=== PATIENT | female | born 1985 | race Caucasian/White ===

== ENCOUNTER → 2016-11-18 | Outpatient (CLI) | payer OTHER ==
--- NOTE | 2016-11-18 12:28 | CT ---
EXAMINATION TYPE: CT chest wo con DATE OF EXAM: 11/18/2016 12:20 PM COMPARISON: Previous study dated 07/30/2016 TECHNIQUE: Helical acquisition through the chest and upper abdomen was obtained without intravenous c ontrast. The data was reformatted into axial, coronal and sagittal projections. HISTORY: Cough. SOB CT DLP: 714 mGycm Automated exposure control for dose reduction was used. FINDINGS: There has been a lower cervical fusion. The lungs are clear. There is no significant axillary, internal mammary, mediastinal or hilar adenopathy. There is no pleu ral or pericardial fluid. The heart is not enlarged. Visualized portions of the upper abdomen are unremarkable. No osseous lesion is seen. IMPRESSION: NORMAL CT SCAN OF
== END | disposition home or self-care (01) ==
LOC: RADCTMAIN 12:04
PROVIDERS: ATTEND Internal Medicine Pulmonary Disease
DX: R06.02 Shortness of breath (principal); R05 Cough
CPT/HCPCS: 71250

== ENCOUNTER → 2017-10-28 | Outpatient (CLI) | payer MEDICARE, OTHER ==
--- NOTE | 2017-10-28 11:54 | CT ---
EXAMINATION TYPE: CT chest wo con DATE OF EXAM: 10/28/2017 COMPARISON: 11/18/2016 HISTORY: 32-year-old female Shortness of Breath TECHNIQUE: Contiguous axial scanning of the chest without IV contrast. Coronal and sagittal reconstru ctions performed. CT DLP: 609.6 mGycm Automated exposure control for dose reduction was used. FINDINGS: Heart is normal size without pericardial effusion. Aorta normal caliber with conventional arch vessel branching anatomy. No thoracic lymphadenopathy seen. Evaluation of the lungs demonstrates very minimal scattered bronchial wall thickening. No consolidati on or pleural effusion. Minimal stranding inferior lingular atelectasis. A tiny 2 mm peripheral right lower lobe pulmonary nodule axial image 32 is unchanged from 11/18/2016 s uggesting a benign etiology. A 3 mm subpleural pulmonary nodule peripheral left base axial image 46 is similarly unchanged. Tiny hiatal hernia. Tiny inferior splenule. Bones: No osseous destructive process. Partially visualized intervertebral disc prosthesis lower cerv ical spine. IMPRESSION: 1. VERY MINIMAL SCATTERED BRONCHIAL WALL THICKENING COULD REPRESENT BRONCHITIS OR ASTHMA. 2. OTHERWISE, NO SPECIFIC ABNORMALITY SEEN. 3. TINY HIATAL HERNIA.
[2017-10-30 13:55] LABS: Cotinine <2.0 ng/mL (<2.0); Nicotine <2.0 ng/mL (<2.0)
== END | disposition home or self-care (01) ==
LOC: RADCTMAIN 11:08
PROVIDERS: ATTEND Internal Medicine Pulmonary Disease
DX: J98.09 Other diseases of bronchus, not elsewhere classified (principal); R06.02 Shortness of breath; R05 Cough; K44.9 Diaphragmatic hernia without obstruction or gangrene; Z72.0 Tobacco use
CPT/HCPCS: 71250; G0480; 80323

== ENCOUNTER → 2017-11-08 | Outpatient (CLI) | payer OTHER ==
--- NOTE | 2017-11-09 10:16 | ECHOF ---
Referral Reason:R06.02 shortness of Breath MEASUREMENTS -------- HEIGHT: 170.2 cm WEIGHT: 102.1 kg BP: 141/84 RVIDd: 2.8 cm (< 3.3) IVSd: 1.2 cm (0.6 - 1.1) LVIDd: 4.4 cm (3.9 - 5.3) LVPWd: 1.2 cm (0.6 - 1.1) IVSs: 1.6 cm LVIDs: 2.3 cm LVPWs: 1.6 cm LAESV Index (A-L): 11.62 ml/m Ao Diam: 2.7 cm (2.0 - 3.7) AV Cusp: 1.7 cm (1.5 - 2.6) LA Diam: 3.4 cm (2.7 - 3.8) MV EXCURSION: 14.317 mm (> 18.000) MV EF SLOPE: 97 mm/s (70 - 150) EPSS: 0.6 cm MV E Roscoe: 0.75 m/s MV DecT: 249 ms MV A [place]coe: 1.05 m/s MV E/A Ratio: 0.72 AV maxP.59 mmHg AV meanP.81 mmHg RAP: 5.00 mmHg RVSP: 13.89 mmHg FINDINGS -------- Sinus rhythm. This was a technically adequate study. The left ventricular size is normal. There is mild concentric left ventricular hypertrophy. Overa ll left ventricular systolic function is normal with, an EF between 55 - 60 %. The right ventricle is normal in size and function. Normal LA size by volume 22+/-6 ml/m2. The right atrium is normal in size. The aortic valve is trileaflet, and appears structurally normal. No aortic stenosis or regurgitation. The mitral valve is normal. There is trace mitral regurgitation. Trace tricuspid regurgitation present. Right ventricular systolic pressure is normal at < 35 mmHg. There is no evidence of pulmonary hypertension. Trace/mild (physiologic) pulmonic regurgitation. The aortic root size is normal. Normal inferior vena cava with normal inspiratory collapse consistent with estimated right atrial pre ssure of 5 mmHg. There is no pericardial effusion. CONCLUSIONS -------- 1. Sinus rhythm. 2. This was a technically adequate study. 3. The left ventricular size is normal. 4. There is mild concentric left ventricular hypertrophy. 5. Overall left ventricular systolic function is normal with, an EF between 55 - 60 %. 6. Normal LA size by volume 22+/-6 ml/m2. 7. The aortic valve is trileaflet, and appears structurally normal. No aortic stenosis or regurgitati on. 8. There is trace mitral regurgitation. 9. Trace tricuspid regurgitation present. 10. Right ventricular systolic pressure is normal at < 35 mmHg. 11. Trace/mild (physiologic) pulmonic regurgitation. 12. The aortic root size is normal. 13. There is no pericardial effusion. GRINDING WHEEL OPERATOR: Shirley Nevarez RDCS
== END | disposition home or self-care (01) ==
LOC: RADECHMAIN 15:40
PROVIDERS: ATTEND Internal Medicine Pulmonary Disease
DX: I08.1 Rheumatic disorders of both mitral and tricuspid valves (principal)
CPT/HCPCS: 93306

== ENCOUNTER → 2018-03-01 | Outpatient (CLI) | payer MEDICARE, OTHER ==
--- NOTE | 2018-03-01 08:23 | US ---
EXAMINATION TYPE: US abdomen complete DATE OF EXAM: 03/01/2018 COMPARISON: CT Chest dated October 28, 2017 CLINICAL HISTORY: K42.9 Umbilical hernia w/o obstruction. Pt states pain at umbilicus EXAM MEASUREMENTS: Liver Length: 20.7 cm Gallbladder Wall: 0.2 cm CBD: 0.3 cm Spleen: 10.9 cm Right Kidney: 11.6 X 4.2 X 5.2 cm Left Kidney: 12.0 X 4.2 X 5.5 cm Pancreas: wnl, tail obscured by overlying bowel gas Liver: Enlarged, difficult to penetrate, heterogeneous Gallbladder: wnl Evidence for sonographic Wadsworth's sign: No CBD: wnl Spleen: wnl Right Kidney: wnl Left Kidney: wnl Upper IVC: wnl Abd Aorta: wnl At umbilicus, area of pt's pain: unable to appreciate abnormality The intrahepatic portion of the IVC and proximal abdominal aorta are within normal limits. There is no evidence of cholelithiasis. Common bile duct is unremarkable. The visualized portions of the [place] creas are homogenous. The spleen is unremarkable. Questionable cortical defect in the midpole the le ft kidney. IMPRESSION: Correlate for hepatocellular disease, hepatic steatosis, there is hepatomegaly. An umbili ev hernia that contains fat was present on prior CT.
== END | disposition home or self-care (01) ==
LOC: RADUSWWP 07:30
PROVIDERS: ATTEND Family Medicine
DX: K42.9 Umbilical hernia without obstruction or gangrene (principal); R16.0 Hepatomegaly, not elsewhere classified
CPT/HCPCS: 76700

== ENCOUNTER 2018-03-24 13:35 | Day surgery (SDC) | payer MEDICARE, OTHER ==
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
[2018-03-24 14:07] VITALS: TEMP 97.7
[2018-03-24] MEDS ORDERED: LACTATED RINGERS 1,000 ML IV SCH (16:19)
[2018-03-24] MEDS ORDERED: PROPOFOL 10 MG/ML 20 ML VIAL IV ONE (16:20)
[2018-03-24 16:42] VITALS: PULSE 69; RESP 18
[2018-03-24 16:59] VITALS: BP 120/86
--- NOTE | 2018-03-24 18:46 | P.PCN ---
Date of Procedure: 03/24/18 Description of Procedure: PREOPERATIVE DIAGNOSIS: Gastroesophageal reflux disease. POSTOPERATIVE DIAGNOSIS: Gastritis. Gastroesophageal reflux disease. Diaphragmatic hiatal hernia without obstruction. OPERATION: Esophagogastroduodenoscopy with biopsies along antrum. SURGEON: Sanjuana Moraes MD ANESTHESIA: MAC. INDICATIONS: The patient is a 32-year-old female who presents with a history of reflux disease. Benefits and risks of the procedure were described. Informed consent was obtained. DESCRIPTION: The patient was brought into the endoscopy suite and laid in the left lateral decubitus position. An Olympus gastroscope was passed along the posterior oropharynx down to the distal esophagus where the squamocolumnar junction was encountered at 37 cm from the incisors. The stomach was entered and no bile reflux was found. Additional findings are listed below. Biopsies with cold forceps were obtained of the antrum. The first through third portion of the duodenum was examined and unremarkable. Retroflexion of the scope confirmed Hill grade 4 lower esophageal valve. The squamocolumnar junction demostrated LA grade A erosive esophagitis. The stomach was desufflated. The patient tolerated the procedure well. FINDINGS: Squamocolumnar junction 37 cm from the incisors. Diaphragmatic hiatus at 40 cm. Hiatal hernia 3 cm. Hill grade 4 lower esophageal valve. LA grade A erosive esophagitis. No active duodenitis. Early gastritis without bleeding along the antrum RECOMMENDATIONS: Upper endoscopy as needed. Plan - Discharge Summary New Discharge Prescriptions: No Action Albuterol Nebulized [Ventolin Nebulized] 2.5 mg INHALATION RT-Q6H PRN PRN Reason: Shortness Of Breath Colchicine 0.6 mg PO BID Albuterol Inhaler [Ventolin Hfa Inhaler] 2 puff INHALATION RT-Q4H PRN PRN Reason: Shortness Of Breath Diazepam [Valium] 10 mg PO TID PRN PRN Reason: Anxiety Ibuprofen [Motrin] 800 mg PO TID Hydroxychloroquine Sulfate [Plaquenil] 400 mg PO ONCE Discharge Medication List Albuterol Inhaler [Ventolin Hfa Inhaler] 2 puff INHALATION RT-Q4H PRN 07/30/16 [ History] Albuterol Nebulized [Ventolin Nebulized] 2.5 mg INHALATION RT-Q6H PRN 07/30/16 [ History] Colchicine 0.6 mg PO BID 07/30/16 [History] Diazepam [Valium] 10 mg PO TID PRN 07/30/16 [History] Hydroxychloroquine Sulfate [Plaquenil] 400 mg PO ONCE 03/24/18 [History] Ibuprofen [Motrin] 800 mg PO TID 03/24/18 [History] Patient Instructions/Handouts: *Surgery [facility] - (Anesthesia) Endoscopy Discharge Instructions, Hiatal Hernia (DC), Gastritis (DC), Gastroesophageal Reflux Disease (DC), Upper Endoscopy (DC) Activity/Diet/Wound Care/Special Instructions: REST TODAY, NO DRIVING, DRINK LOTS OF FLUIDS DR TO CALL YOU WHEN DONE LATER TODAY OR TOMORROW DR'S OFFICE TO CALL WITH RESULTS IN 5-7 DAYS Discharge Disposition: HOME SELF-CARE
== END 2018-03-24 17:22 | disposition home or self-care (01) ==
LOC: ORWHC2ENDO 13:35
PROVIDERS: ATTEND Surgery Plastic and Reconstructive Surgery
DX: K21.0 Gastro-esophageal reflux disease with esophagitis (principal); K29.50 Unspecified chronic gastritis without bleeding; K44.9 Diaphragmatic hernia without obstruction or gangrene; J45.909 Unspecified asthma, uncomplicated; F39 Unspecified mood [affective] disorder; Z91.040 Latex allergy status; Z88.8 Allergy status to other drugs, medicaments and biological substances; Z79.51 Long term (current) use of inhaled steroids; Z79.899 Other long term (current) drug therapy
CPT/HCPCS: 43239; 81025; 88305; J2704

== ENCOUNTER 2018-05-05 10:15 | Inpatient (IN) | payer MEDICARE ==
--- NOTE | 2018-05-05 08:37 | P.GSHP ---
History of Present Illness H&P Date: 05/05/18 CHIEF COMPLAINT: Ventral hernia. HISTORY OF PRESENT ILLNESS: The patient is a 32-year-old female who presents with a history of swelling along the epigastrium above the umbilicus. Findings were consistent with ventral hernia after diagnostic studies. Now she presents for further evaluation and management. PAST MEDICAL HISTORY: Please see list. PAST SURGICAL HISTORY: Please see list. MEDICATIONS: Please see list. ALLERGIES: Please see list. SOCIAL HISTORY: No illicit drug use FAMILY HISTORY: No reports of Crohn disease or ulcerative colitis. REVIEW OF ORGAN SYSTEMS: CONSTITUTIONAL: No reports of fevers or chills. GI: Denies any blood in stools or constipation. PHYSICAL EXAM: VITAL SIGNS: Stable GENERAL: Well-developed pleasant female in no acute distress. HEENT: No scleral icterus. Extraocular movements grossly intact. Moist buccal mucosa. NECK: Supple without lymphadenopathy. CHEST: Unlabored respirations. Equal bilateral excursions. CARDIOVASCULAR: Regular rate and rhythm. Distal 2+ pulses. ABDOMEN: Soft, nondistended. Protuberant. MUSCULOSKELETAL: No clubbing, cyanosis, or edema. STUDIES: Ultrasound of the abdomen consistent with incarcerated ventral hernia/umbilical hernia ASSESSMENT: 1. Ventral hernia. 2. Morbid obesity, BMI 35.6 PLAN: 1. Recommend proceeding with robotic ventral hernia repair. Patient requests avoidance of mesh. 2. Benefits and risks of surgical intervention was discussed including possibility of open technique. 3. DVT prophylaxis. 4. Antibiotic prophylaxis. Past Medical History Past Medical History: Asthma, Pneumonia, Rheumatoid Arthritis (RA) Additional Past Medical History / Comment(s): chronic neck pain and headaches, being treated for PERICARDITIS, LUPUS like symptoms History of Any Multi-Drug Resistant Organisms: None Reported Past Surgical History: Ear Surgery, Tonsillectomy Additional Past Surgical History / Comment(s): titanium plate neck sx, cosmetic sx as child on ears Past Anesthesia/Blood Transfusion Reactions: No Reported Reaction Smoking Status: Never smoker - Past Family History Mother Family Medical History: No Reported History Father Family Medical History: Cancer Additional Family Medical History / Comment(s): throat Medications and Allergies Home Medications Medication Instructions Recorded Confirmed Type Albuterol Inhaler [Ventolin Hfa 2 puff INHALATION RT-Q4H PRN 07/30/16 04/25/18 History Inhaler] Albuterol Nebulized [Ventolin 2.5 mg INHALATION RT-Q6H PRN 07/30/16 04/25/18 History Nebulized] Colchicine 0.6 mg PO BID 07/30/16 04/25/18 History Hydroxychloroquine Sulfate 400 mg PO HS 03/24/18 04/25/18 History [Plaquenil] Ibuprofen [Motrin] 800 mg PO TID 03/24/18 04/25/18 History Omeprazole 20 mg PO DAILY #30 capsule. 03/24/18 04/25/18 Rx Allergies Allergy/AdvReac Type Severity Reaction Status Date / Time hepatitis B virus vaccine Allergy Itching/swe Verified 04/25/18 15:18 lling latex Allergy Rash/Hives Verified 04/25/18 14:48 duloxetine [From Cymbalta] AdvReac Hearing Verified 04/25/18 14:48 Loss
[~2018-05-05 10:15] MED LIST: DEXAMETHASONE SOD PHOSPHATE 10 MG/ML 1 ML VIAL IV ONE; HEPARIN SODIUM,PORCINE 5,000 UNIT/ML 1 ML VIAL SQ ONE; HYDROmorphone 0.5 MG/0.5 ML SYRINGE IVP PRN; LACTATED RINGERS 1,000 ML IV SCH; LIDOCAINE 1% 20 ML VIAL (10MG/ML) FOR IV START INTRADERMA PRN; ONDANSETRON 4 MG/2 ML VIAL IVP ONE; SCOPOLAMINE 1.5MG/72HR PATCH TRANSDERM ONE; ceFAZolin IN SWFI 2 GM/20 ML SYRINGE IVP ONE
[2018-05-05] MEDS ORDERED: ePHEDrine SULFATE/0.9% NACL/PF 50 MG/5 ML SYRINGE IV ONE (12:43)
[2018-05-05] MEDS ORDERED: LIDOCAINE 1% INJ 10MG/ML (20 ML MDV) ONE (12:43)
[2018-05-05] MEDS ORDERED: ROCURONIUM BROMIDE 10 MG/ML 10 ML VIAL IV ONE (12:43)
[2018-05-05] MEDS ORDERED: MIDAZOLAM 2 MG/2 ML VIAL ONE (12:43)
[2018-05-05] MEDS ORDERED: PROPOFOL 10 MG/ML 20 ML VIAL IV ONE (12:43)
[2018-05-05] MEDS ORDERED: ALBUTEROL INHALER 60 PUFF/8 GM INHALER INHALATION ONE (12:43)
[2018-05-05] MEDS ORDERED: ATROPINE SULFATE 0.1 MG/ML 10ML SYRINGE ONE (12:43)
[2018-05-05] MEDS ORDERED: DEXAMETHASONE SOD PHOS (MDV) 100 MG/10 ML VIAL ONE (12:43)
[2018-05-05] MEDS ORDERED: fentaNYL (PF) 50 MCG/ML 2 ML AMP ONE (12:43)
--- NOTE | 2018-05-05 13:10 | P.PN ---
Progress Note - Text Progress Note Date: 05/05/18 Immediately upon induction and intubation patient went into acute bronchospasm. Anesthesia team at bedside. As result of acute bronchospasm prior to prep and drape for surgery, case is canceled. Patient to be observed in the ICU.
[2018-05-05] MEDS ORDERED: ACETAMINOPHEN IV (For NPO) 1,000 MG in EMPTY BAG 1 BAG IVPB ONE (13:13)
[2018-05-05] MEDS ORDERED: MORPHINE SULFATE 2 MG/ML SYRINGE IV PRN (13:13)
[2018-05-05] MEDS ORDERED: NALOXONE 0.4 MG/ML 1 ML VIAL IV PRN (13:13)
--- NOTE | 2018-05-05 13:32 | P.PN ---
Progress Note - Text Progress Note Date: 05/05/18 Updates to family performed including acute bronchospasm. Discussion with anesthesia demonstrated tracheal stricture identified despite attempts of bronchoscopy. Per patient's family request, ENT Dr. Dias requested.
[2018-05-05] MEDS: MIDAZOLAM 2 MG/2 ML VIAL IVP ONE ×4 (14:03→14:28)
[2018-05-05] MEDS ORDERED: IPRATROPIUM-ALBUTEROL 3 ML NEB INHALATION PRN (14:08)
[2018-05-05] MEDS ORDERED: PROPOFOL 1,000 MG in EMPTY BAG 1 BAG IV SCH (14:15)
[2018-05-05 14:24] LABS: Basophils % (A) 0 %; Eosinophils # (A) 0.1 k/uL (0-0.7); Eosinophils % (A) 1 %; HGB 13.8 gm/dL (11.4-16.0); Lymphocytes # (A) 1.9 k/uL (1.0-4.8); Lymphocytes % (A) 12 %; MCH 28.4 pg (25.0-35.0); MCHC 32.8 g/dL (31.0-37.0); MCV 86.7 fL (80.0-100.0); Mean Platelet Volume 6.3; Monocytes # (A) 0.2 k/uL (0-1.0); Monocytes % (A) 1 %; Neutrophils # (A) 13.6 k/uL (1.3-7.7); Neutrophils % (A) 86 %; Platelet Count 323 k/uL (150-450); RBC 4.84 m/uL (3.80-5.40); RDW 14.1 % (11.5-15.5); WBC 15.9 k/uL (3.8-10.6)
[2018-05-05 14:37] LABS: Anion Gap 9 mmol/L; Blood Urea Nitrogen 11 mg/dL (7-17); Calcium 8.6 mg/dL (8.4-10.2); Carbon Dioxide 23 mmol/L (22-30); Chloride 107 mmol/L (98-107); Glucose 182 mg/dL (74-99); Phosphorus 3.9 mg/dL (2.5-4.5); Potassium 4.4 mmol/L (3.5-5.1); Sodium 139 mmol/L (137-145)
--- NOTE | 2018-05-05 14:39 | P.PN ---
Progress Note - Text Patient case cancelled after intubation secondary to bronchospasm. Intubation was completed with grade I view, difficult to bag the patient, albuterol was given as bronchospasm was suspected. Tube was also visualized going through the cords again via Direct Laryngoscopy. Patient saturation began to drop with no End Tital Co2. 100mcg of epinephrine was given via IV without much improvement in pressures. Patient saturation continued to fall to 50's despite bagging patient, tracheal obstruction vs bronchospasm suspected, ambu bag placed to rule out circuit failure without much improvement. Patient began to leonarda down to 50's and 1mg of atropine was given. Patient continued to drop saturationt o 40's, we again placed a fiberoptic scope to confirm, diffiult to pass the scope 2cm past the tube seecondary to possible external compression. Patient HR and BP stabalized and the tube was confirmed again, saturation improved to 90's. Induction Medications: 100mg lidocaine, 50mg of rocuronium, 50mcg of fentanyl, 2mg of versed. NO antibiotics where given. NO latex products were used. No signs of anaphylaxis, no skin changes, no drop in BP, no temperature change. After stabilization, patient was taken to the PACU, Vent was set up, ICU was consulted and I gave sign out to the ICU doctor and explained my concerns. CXR ordered and verified, I pulled the tube back 2cm but it was above the ta. ABG ordered for [employer]. Sedation ordered in PACU, patient to go to ICU for monitoring and possible bronchoscopy/possible CT neck to rule out compression. Family was given an update from Dr. Su. We will be available for further evaluation.
[2018-05-05] MEDS: MIDAZOLAM 2 MG/2 ML VIAL IV PRN ×2 (14:44→15:16)
[2018-05-05] MEDS ORDERED: IV FLUID CONTINUATION 1,000 ML IV ONE (14:45)
[2018-05-05] MEDS ORDERED: LACTATED RINGERS 1,000 ML IV ONE (14:45)
--- NOTE | 2018-05-05 14:55 | XR ---
"EXAMINATION TYPE: XR chest 1V DATE OF EXAM: 05/05/2018 COMPARISON: 10/28/2017 HISTORY: Bronchospasm TECHNIQUE: Single frontal view of the chest is obtained. FINDINGS: Endotracheal tube extends into the right mainstem bronchus and should be retracted approxim ately 3 to 3.5 cm for optimal placement. There are overall low lung volumes and right hemidiaphragm e levation. Retrocardiac opacity is seen favored to represent atelectasis given the right mainstem bron chial intubation. Enteric tube is appropriately placed with its fenestrated portion beyond the gastro esophageal junction. Osseous structures are grossly intact. IMPRESSION: 1. Right mainstem bronchial intubation with recommendation of retraction of the endotracheal tube 3 t o 3.5 cm and reimaging. 2. Retrocardiac opacity likely represents atelectasis given the above findings. A Yellow level critical message alert has been initiated for Sanjuana Moraes MD via the [employer] | Critical Results System on 05/05/2018 2:52 PM. This message alert has been sent to Sanjuana harper MD via the preferences provided by the clinician for the receipt of Radiology Critical Findin gs. Message ID [id number]."
[2018-05-05 14:56] LABS: ABG Base Excess -2.8 mmol/L; ABG HCO3 23 mmol/L (21-25); ABG PCO2 46 mmHg (35-45); ABG PH 7.31 (7.35-7.45); ABG PO2 385 mmHg (83-108); ABG TCO2 25 mmol/L (19-24)
[2018-05-05] MEDS ORDERED: LORazepam 2 MG/ML INJ IV ONE (15:27)
[2018-05-05] MEDS: IPRATROPIUM-ALBUTEROL 3 ML NEB INHALATION SCH ×3 (15:47→23:44)
[2018-05-05] MEDS ORDERED: methylPREDNISolone SOD SUCCI 125 MG/2 ML VIAL IVP ONE (15:54)
[2018-05-05] MEDS ORDERED: FUROSEMIDE 10 MG/ML 4 ML VIAL IV STA (16:13)
--- NOTE | 2018-05-05 16:31 | P.CNPUL ---
History of Present Illness Consult date: 05/05/18 Reason for consult: asthma Chief complaint: Acute respiratory failure History of present illness: 32-year-old female patient with a difficult post intubation course. The patient came in to undergo a ventral hernia repair. The patient was induced by anesthesia. The patient was given a combination of other milligrams of lidocaine, 50 mg of rocuronium, 2 mg of Versed and 50 g of fentanyl for induction. Following that, the patient was intubated. Immediately postintubation, and it was very difficult to bag. There is to the volumes were low. The patient progressively become hypoxic. There was a drop in the pulse ox and there was no and bilateral CO2. The patient was extremely bronchospastic and wheezy. It was difficult to bag. The patient was given epinephrine IV without much improvement in the airway pressures. A total of 100 g of epinephrine was given. Subsequently the patient became bradycardic. Heart rate dropped in the mid 50s. She was given a dose of atropine 1 mg. She continued to drop her saturations on the day low 40s. A fiberoptic scope was used to confirm due to positioning. It was difficult to pass the ET tube to visualized airways. The procedure was aborted. Subsequently, the heart rate and the blood pressure stabilized and the tube positioning was confirmed again. The shins phosphorus came up in the mid 90s. She was transferred to recovery. I was asked to evaluate this patient in the recovery room At the time of arrival at around 4:10 PM, the patient was sedated with Diprivan and she was very calm and comfortable. She had received a total of 8 mg of Versed and 2 mg of Ativan. She was successful the mechanical ventilator. She is currently on assist control mode at the rate of 16, tidal volume of 450, FiO2 of 50% and PEEP of 5. Her blood gases was done and patient showed a pH of 7.31 with a pCO2 of 86 and pO2 of 385 and this was done and FiO2 of 100%. Stat chest x-ray was ordered and the patient's ET tube was seen in the right mainstem bronchus. The tube was pulled back by 2 cm and currently she is on 22 cm lip line. Rest on that equal and bilateral. Peak airway pressure is 21. The patient is having equal and symmetrical breath sounds. Minimal expiratory wheezing is noted. She is hemodynamically stable. Heart rate is sinus at the rate of 105. Pulse ox is 95% on above-mentioned vent setting with an FiO2 of 40 %. Obviously procedure was aborted. No surgery was done. A Sprague catheter was inserted and the urine output was in order of 30 mL he had she is also receiving IV fluids and currently she is on 65 mL of lactated Ringer. The preop blood work was all within normal and the patient had a normal renal function. Patient is known to have bronchial asthma. She also has history of lupus. She has had previous history of pericarditis. She has been maintained on O2 scene and Plaquenil on outpatient basis. She is also Ventolin estimate basis. No reported or established history of obstructive sleep apnea. Note that the patient had a normal and uneventful intubation and the cords were seen. The direct laryngoscopy. A CAT scan of the chest that was done on 2017 showed no acute abnormalities identified and hiatal hernia. No parenchymal abnormalities. No mediastinal lymphadenopathy. The mediastinal masses. Review of Systems ROS unobtainable: due to endotracheal tube Past Medical History Past Medical History: Asthma, Pneumonia, Rheumatoid Arthritis (RA) Additional Past Medical History / Comment(s): Lupus, RA, pericarditis, chronic neck pain, chronic headaches, History of Any Multi-Drug Resistant Organisms: None Reported Past Surgical History: Ear Surgery, Tonsillectomy Additional Past Surgical History / Comment(s): titanium plate neck sx, cosmetic sx as child on ears Past Anesthesia/Blood Transfusion Reactions: No Reported Reaction Smoking Status: Never smoker - Past Family History Mother Family Medical History: No Reported History Father Family Medical History: Cancer Additional Family Medical History / Comment(s): throat Medications and Allergies Home Medications Medication Instructions Recorded Confirmed Type Albuterol Inhaler [Ventolin Hfa 2 puff INHALATION RT-Q4H PRN 07/30/16 05/05/18 History Inhaler] Albuterol Nebulized [Ventolin 2.5 mg INHALATION RT-Q6H PRN 07/30/16 05/05/18 History Nebulized] Colchicine 0.6 mg PO BID 07/30/16 05/05/18 History Hydroxychloroquine Sulfate 400 mg PO HS 03/24/18 05/05/18 History [Plaquenil] Ibuprofen [Motrin] 600 mg PO TID 03/24/18 05/05/18 History Omeprazole 20 mg PO DAILY 05/05/18 05/05/18 History Allergies Allergy/AdvReac Type Severity Reaction Status Date / Time hepatitis B virus vaccine Allergy Itching/swe Verified 05/05/18 16:12 lling latex Allergy Rash/Hives Verified 05/05/18 16:12 duloxetine [From Cymbalta] AdvReac Hearing Verified 05/05/18 16:12 Loss Physical Exam Vitals: Vital Signs Temp Pulse Pulse Pulse Resp BP Pulse Ox 05/05/18 15:59 109 H 26 H 05/05/18 15:56 123 H 16 131/72 96 05/05/18 15:47 102 H 25 H 05/05/18 15:30 110 H 16 132/68 99 05/05/18 15:00 116 H 16 135/61 97 05/05/18 14:45 117 H 16 142/91 99 05/05/18 14:30 104 H 16 117/57 99 05/05/18 14:15 118 H 16 129/62 99 05/05/18 14:00 100 16 107/63 94 L 05/05/18 13:51 97.8 F 90 14 124/63 92 L 05/05/18 11:12 98.3 F 74 16 116/79 97 Intake and Output 05/05/18 05/05/18 05/05/18 06:59 14:59 22:59 Intake Total 200 Balance 200 Intake: IV 200 Intubated, comfortable on mechanical ventilator the patient is 7.[address] Head exam was generally normal. There was no scleral icterus or corneal arcus. Mucous membranes were moist. Neck was supple and without jugular venous distension, thyromegaly, or carotid bruits. Carotids were easily palpable bilaterally. There was no adenopathy. Lungs other records symmetrical bilaterally along with some few scattered external wheeze Cardiac exam revealed the PMI to be normally situated and sized. The rhythm was regular and no extrasystoles were noted during several minutes of auscultation. The first and second heart sounds were normal and physiologic splitting of the second heart sound was noted. There were no murmurs, rubs, clicks, or gallops. Abdominal exam revealed normal bowel sounds. The abdomen was soft, non-tender, and without masses, organomegaly, or appreciable enlargement of the abdominal aorta. Examination of the extremities revealed easily palpable radial, femoral and pedal pulses. There was no cyanosis, clubbing or edema. Examination of the skin revealed no evidence of significant rashes, suspicious appearing nevi or other concerning lesions. Neurologically the patient is sedated and the patient is currently in the process of being taken up to sedation. Results - Laboratory Findings CBC and BMP: 05/05/18 14:08 05/05/18 14:08 ABG ABG pH 7.31 (7.35-7.45) L 05/05/18 14:40 ABG pCO2 46 mmHg (35-45) H 05/05/18 14:40 ABG pO2 385 mmHg (83-108) H 05/05/18 14:40 ABG O2 Saturation 100.0 % (94-97) H 05/05/18 14:40 Abnormal lab findings: Abnormal Labs 05/05/18 05/05/18 05/05/18 14:08 14:08 14:40 WBC 15.9 H Neutrophils # 13.6 H ABG pH 7.31 L ABG pCO2 46 H ABG pO2 385 H ABG Total CO2 25 H ABG O2 Saturation 100.0 H Glucose 182 H - Diagnostic Findings Chest x-ray: image reviewed Assessment and Plan Plan: Assessment 1 acute hypoxic respiratory failure. The patient had difficulties with airway management and pulmonary management including oxygenation and ventilation post intubation. Events reported by anesthesia was noted. It's likely that the patient had a right mainstem intubation knowing that the chest x-rays was done in recovery show that the ET tube was in the right mainstem. The tube is positioned appropriately at this point in time. The ventilation is adequate. Oxidation is adequate. The airway pressures are low. Another possibility is that the patient had acute bronchospasm there was severe and it affected oxygenation and ventilation in general. The patient received epinephrine. No indication for a negative pressure pulmonary edema. N0 indication for any airway obstruction at this point in time. ET tube is in place. I was able to pass and the suction tube without any major difficulties. Breath sounds are equal and symmetrical. 2 acute hemodynamic instability secondary to hypoxemia, recovered. 3 obesity 4. ventral hernia and the procedure was canceled due to the events mentioned above 5 history of lupus/RA 6 history of pericarditis Plan We'll put the patient on DuoNeb neb regiments of the clock. IV Solu-Medrol 125 mg now and 60 mg every 6 hours. Pulmicort Respules twice a day. Blood gases was reviewed. ET tube positioning was done. Wean off sedation. Assessment patient. Assessment weaning parameters. Spontaneous breathing trial. Possible extubation today. The patient will moved to the intensive care unit. Continue to follow.
[2018-05-05] MEDS: SODIUM CHLORIDE 0.9% 1,000 ML IV SCH ×2 (17:35→21:09)
[2018-05-05] MEDS: EMPTY BAG 1 BAG with PROPOFOL 1,000 MG IV SCH ×3 (17:35→21:06)
[2018-05-05 18:06] LABS: Glucose,Whole Blood 167 mg/dL (75-99)
[2018-05-05] MEDS ORDERED: ACETAMINOPHEN IV (For NPO) 1,000 MG in EMPTY BAG 1 BAG IVPB PRN (18:22)
[2018-05-05 19:44] VITALS: BMI 39.4
[2018-05-05] MEDS: BUDESONIDE 1 MG/2 ML NEBU INHALATION SCH (20:55)
[2018-05-05] MEDS ORDERED: CHLORHEXIDINE GLUCONATE 15 ML CUP MUCOUS MEM SCH (21:00)
--- NOTE | 2018-05-05 21:04 | CT ---
EXAMINATION TYPE: CT brain wo con DATE OF EXAM: 05/05/2018 COMPARISON: 07/31/2014 HISTORY: Unresponsive CT DLP: mGycm. Automated Exposure Control for Dose Reduction was Utilized. TECHNIQUE: CT scan of the head is performed without contrast. Ventricles of normal size. There is no mass effect nor midline shift. There is no sign of intracrania l hemorrhage. The calvarium is intact. IMPRESSION: Negative CT scan of the brain. No change.
[2018-05-05] MEDS: methylPREDNISolone SOD SUCCI 125 MG/2 ML VIAL IV SCH (21:07)
[2018-05-05] MEDS: FAMOTIDINE 20 MG/2 ML VIAL IV SCH (21:08)
[2018-05-06] MEDS: EMPTY BAG 1 BAG with PROPOFOL 1,000 MG IV SCH ×3 (01:00→05:41)
[2018-05-06] MEDS: methylPREDNISolone SOD SUCCI 125 MG/2 ML VIAL IV SCH ×5 (01:04→23:03)
[2018-05-06] MEDS: IPRATROPIUM-ALBUTEROL 3 ML NEB INHALATION SCH ×6 (02:58→23:46)
[2018-05-06] MEDS ORDERED: fentaNYL (PF) 2,500 MCG in SODIUM CHLORIDE 0.9% 200 ML IV SCH (03:15)
[2018-05-06 04:56] LABS: Basophils % (A) 0 %; Eosinophils # (A) 0.1 k/uL (0-0.7); Eosinophils % (A) 1 %; HCT 40.5 % (34.0-46.0); HGB 13.2 gm/dL (11.4-16.0); Lymphocytes # (A) 1.1 k/uL (1.0-4.8); Lymphocytes % (A) 6 %; MCH 28.2 pg (25.0-35.0); MCHC 32.7 g/dL (31.0-37.0); MCV 86.3 fL (80.0-100.0); Mean Platelet Volume 6.5; Monocytes # (A) 0.3 k/uL (0-1.0); Monocytes % (A) 2 %; Neutrophils # (A) 16.8 k/uL (1.3-7.7); Neutrophils % (A) 92 %; Platelet Count 317 k/uL (150-450); RBC 4.69 m/uL (3.80-5.40); RDW 14.3 % (11.5-15.5); WBC 18.3 k/uL (3.8-10.6)
[2018-05-06 05:12] LABS: Anion Gap 7 mmol/L; Blood Urea Nitrogen 15 mg/dL (7-17); Calcium 8.8 mg/dL (8.4-10.2); Carbon Dioxide 25 mmol/L (22-30); Chloride 106 mmol/L (98-107); Glucose 193 mg/dL (74-99); Magnesium 1.9 mg/dL (1.6-2.3); Phosphorus 2.8 mg/dL (2.5-4.5); Potassium 4.2 mmol/L (3.5-5.1); Sodium 138 mmol/L (137-145)
[2018-05-06 05:22] LABS: ABG Base Excess 0.5 mmol/L; ABG HCO3 25 mmol/L (21-25); ABG Oxygen Saturation 97.7 % (94-97); ABG PCO2 40 mmHg (35-45); ABG PH 7.41 (7.35-7.45); ABG PO2 91 mmHg (83-108); ABG TCO2 26 mmol/L (19-24)
[2018-05-06 06:23] LABS: Glucose,Whole Blood 188 mg/dL (75-99)
[2018-05-06] MEDS: INSULIN ASPART 100 UNIT/ML 1 ML 10 ML VIAL SQ SCH ×2 (06:54→20:06)
[2018-05-06] MEDS ORDERED: Magnesium Replacement Protocol 1 EACH MISC MISCELLANE PRN (07:22)
[2018-05-06 07:25] LABS: Appearance,Urine Cloudy (Clear); Bilirubin,Urine Negative (Negative); Blood,Urine Large (Negative); Color,Urine Light Red; Glucose,Urine (UA) Negative (Negative); Ketones,Urine Trace (Negative); Leukocyte Esterase,Urine Trace (Negative); Mucus,Urine Rare /hpf; Nitrite,Urine Negative (Negative); Protein,Urine 1+ (Negative); RBC,Urine >182 /hpf (0-5); Specific Gravity,Urine 1.023 (1.001-1.035); Squamous Epithelial Cell,Urine 1 /hpf (0-4); Urobilinogen,Urine <2.0 mg/dL (<2.0); WBC,Urine 44 /hpf (0-5)
[2018-05-06] MEDS: BUDESONIDE 1 MG/2 ML NEBU INHALATION SCH ×2 (07:55→20:17)
[2018-05-06] MEDS: cefTRIAXone IN SWFI 1,000 MG/10 ML SYRINGE IVP SCH (08:06)
--- NOTE | 2018-05-06 08:06 | P.PN ---
Subjective Progress Note Date: 05/06/18 32-year-old female patient with a difficult post intubation course. The patient came in to undergo a ventral hernia repair. The patient was induced by anesthesia. The patient was given a combination of other milligrams of lidocaine, 50 mg of rocuronium, 2 mg of Versed and 50 g of fentanyl for induction. Following that, the patient was intubated. Immediately postintubation, and it was very difficult to bag. There is to the volumes were low. The patient progressively become hypoxic. There was a drop in the pulse ox and there was no and bilateral CO2. The patient was extremely bronchospastic and wheezy. It was difficult to bag. The patient was given epinephrine IV without much improvement in the airway pressures. A total of 100 g of epinephrine was given. Subsequently the patient became bradycardic. Heart rate dropped in the mid 50s. She was given a dose of atropine 1 mg. She continued to drop her saturations on the day low 40s. A fiberoptic scope was used to confirm due to positioning. It was difficult to pass the ET tube to visualized airways. The procedure was aborted. Subsequently, the heart rate and the blood pressure stabilized and the tube positioning was confirmed again. The shins phosphorus came up in the mid 90s. She was transferred to recovery. I was asked to evaluate this patient in the recovery room At the time of arrival at around 4:10 PM, the patient was sedated with Diprivan and she was very calm and comfortable. She had received a total of 8 mg of Versed and 2 mg of Ativan. She was successful the mechanical ventilator. She is currently on assist control mode at the rate of 16, tidal volume of 450, FiO2 of 50% and PEEP of 5. Her blood gases was done and patient showed a pH of 7.31 with a pCO2 of 86 and pO2 of 385 and this was done and FiO2 of 100%. Stat chest x-ray was ordered and the patient's ET tube was seen in the right mainstem bronchus. The tube was pulled back by 2 cm and currently she is on 22 cm lip line. Rest on that equal and bilateral. Peak airway pressure is 21. The patient is having equal and symmetrical breath sounds. Minimal expiratory wheezing is noted. She is hemodynamically stable. Heart rate is sinus at the rate of 105. Pulse ox is 95% on above-mentioned vent setting with an FiO2 of 40 %. Obviously procedure was aborted. No surgery was done. A Sprague catheter was inserted and the urine output was in order of 30 mL he had she is also receiving IV fluids and currently she is on 65 mL of lactated Ringer. The preop blood work was all within normal and the patient had a normal renal function. Patient is known to have bronchial asthma. She also has history of lupus. She has had previous history of pericarditis. She has been maintained on O2 scene and Plaquenil on outpatient basis. She is also Ventolin estimate basis. No reported or established history of obstructive sleep apnea. Note that the patient had a normal and uneventful intubation and the cords were seen. The direct laryngoscopy. A CAT scan of the chest that was done on 2017 showed no acute abnormalities identified and hiatal hernia. No parenchymal abnormalities. No mediastinal lymphadenopathy. The mediastinal masses. On 05/06/2018 I'm seeing this patient for a follow-up. The patient is currently in the intensive care unit. However efforts to wean the patient off the mechanical ventilator failed yesterday. As the patient was being weaned off the Diprivan, she was getting agitated and she never got to a point where she was able to follow commands or answer questions. I suspected that there was some residual drug effect disturbing our weaning process. The patient was not following any commands. She was thrashing. She was getting agitated. As such, we decided to keep the patient on sedation. She got moved to the intensive care unit. Overnight she was kept on a mechanical ventilator and this morning she is on a combination of Diprivan and fentanyl for sedation. Diprivan earlier this morning was at 50 g per KG per minute. The patient is also on no dose of fentanyl drip pH is very calm and comfortable. She is synchronous with the mechanical ventilator and currently she is on assist control of 16, tidal volume of 450, FiO2 of 40% and a PEEP of 5. The blood gases from this morning showed a pH of 7.41 with a pCO2 of 40. PO2 of 91. The peak airway pressure is 27. As mentioned earlier the patient intubated by 7.5 ET tube. No difficulties suctioning her through the orotracheal tube. Able to advanced to suction through the orotracheal tube without any major difficulties. The chest x-ray from today shows no acute abnormalities. Note that the patient overnight was having a low-grade fever with a temperature max of 100.9. UA was abnormal and the patient was started on IV Rocephin. She is hemodynamically stable. She is producing adequate amount of urine output. The white cell count this morning is at 18.3. Rest of the blood work and electrodes are all within normal limits. No major bronchospasm and wheezing. She is on bronchodilators. She is on IV Solu-Medrol. She is on Pulmicort Respules. She is on DVT and GI prophylaxis. CAT scan of the brain was done yesterday and it showed no acute abnormalities. Objective - Vital Signs Vital signs: Vital Signs Temp 98.6 F 05/06/18 05:23 Pulse 96 05/06/18 07:58 Resp 16 05/06/18 07:00 BP 119/55 05/06/18 07:00 Pulse Ox 96 05/06/18 07:00 Intake & Output 05/05/18 05/06/18 05/06/18 18:59 06:59 18:59 Intake Total 700 1559.150 66.907 Output Total 1500 1240 Balance -800 319.150 66.907 Weight 115.5 kg Intake: IV 700 1200 Sodium Chloride 0.9% 1, 1200 000 ml @ 100 mls/hr IV . Q10H FRANCOISE Rx#:[id number] Intake, IV Titration 359.150 66.907 Amount Empty Bag 1 bag @ 10 MCG/ 340.350 66.907 KG/MIN 6.17 mls/hr IV . [id number] FRANCOISE with Propofol 1,000 mg Rx#:[id number] fentaNYL (PF) 2,500 mcg 18.8 In Sodium Chloride 0.9% 200 ml @ Per Protocol IV .Q0M FRANCOISE Rx#:[id number] Output: Urine 1500 1240 Other: Voiding Method Indwelling Catheter Indwelling Catheter - Exam Intubated, comfortable on mechanical ventilator the patient is 7.[address] Head exam was generally normal. There was no scleral icterus or corneal arcus. Mucous membranes were moist. Neck was supple and without jugular venous distension, thyromegaly, or carotid bruits. Carotids were easily palpable bilaterally. There was no adenopathy. Lungs other records symmetrical bilaterally along with some few scattered external wheeze Cardiac exam revealed the PMI to be normally situated and sized. The rhythm was regular and no extrasystoles were noted during several minutes of auscultation. The first and second heart sounds were normal and physiologic splitting of the second heart sound was noted. There were no murmurs, rubs, clicks, or gallops. Abdominal exam revealed normal bowel sounds. The abdomen was soft, non-tender, and without masses, organomegaly, or appreciable enlargement of the abdominal aorta. Examination of the extremities revealed easily palpable radial, femoral and pedal pulses. There was no cyanosis, clubbing or edema. Examination of the skin revealed no evidence of significant rashes, suspicious appearing nevi or other concerning lesions. Neurologically the patient is sedated and the patient is currently in the process of being taken up to sedation again this morning. The patient will be given a sedation holiday. Her neurologic function will be assessed. Accordingly we'll decide on the weaning. Pupils are equal and reactive to light. No nystagmus. No facial asymmetry. She has a good cough and gag reflex. - Labs CBC & Chem 7: 05/06/18 04:36 05/06/18 04:36 Labs: Abnormal Lab Results - Last 24 Hours (Table) 05/05/18 05/05/18 05/05/18 Range/Units 14:08 14:08 14:40 WBC 15.9 H (3.8-10.6) k/uL Neutrophils # 13.6 H (1.3-7.7) k/uL ABG pH 7.31 L (7.35-7.45) ABG pCO2 46 H (35-45) mmHg ABG pO2 385 H (83-108) mmHg ABG Total CO2 25 H (19-24) mmol/L ABG O2 Saturation 100.0 H (94-97) % Glucose 182 H (74-99) mg/dL POC Glucose (mg/dL) (75-99) mg/dL Urine Appearance (Clear) Urine Protein (Negative) Urine Ketones (Negative) Urine Blood (Negative) Ur Leukocyte Esterase (Negative) Urine RBC (0-5) /hpf Urine WBC (0-5) /hpf Urine Mucus (None) /hpf 05/05/18 05/06/18 05/06/18 Range/Units 18:03 04:36 04:36 WBC 18.3 H (3.8-10.6) k/uL Neutrophils # 16.8 H (1.3-7.7) k/uL ABG pH (7.35-7.45) ABG pCO2 (35-45) mmHg ABG pO2 (83-108) mmHg ABG Total CO2 (19-24) mmol/L ABG O2 Saturation (94-97) % Glucose 193 H (74-99) mg/dL POC Glucose (mg/dL) 167 H (75-99) mg/dL Urine Appearance (Clear) Urine Protein (Negative) Urine Ketones (Negative) Urine Blood (Negative) Ur Leukocyte Esterase (Negative) Urine RBC (0-5) /hpf Urine WBC (0-5) /hpf Urine Mucus (None) /hpf 05/06/18 05/06/18 05/06/18 Range/Units 05:20 06:20 06:30 WBC (3.8-10.6) k/uL Neutrophils # (1.3-7.7) k/uL ABG pH (7.35-7.45) ABG pCO2 (35-45) mmHg ABG pO2 (83-108) mmHg ABG Total CO2 26 H (19-24) mmol/L ABG O2 Saturation 97.7 H (94-97) % Glucose (74-99) mg/dL POC Glucose (mg/dL) 188 H (75-99) mg/dL Urine Appearance Cloudy H (Clear) Urine Protein 1+ H (Negative) Urine Ketones Trace H (Negative) Urine Blood Large H (Negative) Ur Leukocyte Esterase Trace H (Negative) Urine RBC >182 H (0-5) /hpf Urine WBC 44 H (0-5) /hpf Urine Mucus Rare H (None) /hpf Microbiology - Last 24 Hours (Table) 05/05/18 20:22 Sputum Culture - Preliminary Sputum Assessment and Plan Plan: Assessment 1 acute hypoxic respiratory failure. The patient had difficulties with airway management and pulmonary management including oxygenation and ventilation post intubation. Events reported by anesthesia was noted. It's likely that the patient had a right mainstem intubation knowing that the chest x-rays was done in recovery show that the ET tube was in the right mainstem. The tube is positioned appropriately at this point in time. The ventilation is adequate. Oxidation is adequate. The airway pressures are low. Another possibility is that the patient had acute bronchospasm there was severe and it affected oxygenation and ventilation in general. The patient received epinephrine. No indication for a negative pressure pulmonary edema. N0 indication for any airway obstruction at this point in time. ET tube is in place. I was able to pass and the suction tube without any major difficulties. Breath sounds are equal and symmetrical. 2 acute hemodynamic instability secondary to hypoxemia, recovered. 3 obesity 4 ventral hernia and the procedure was canceled due to the events mentioned above 5 history of lupus/RA 6 history of pericarditis Plan I was unable to wean this patient off the mechanical ventilator for the reasons mentioned above. The predominant problem was her mentation and inability to wake up from sedation and follow commands and be appropriate and proceed with weaning parameters and weaning protocols. The patient was becoming agitated off sedation and she was having an autonomic reaction including hypertension and tachycardia. She was also becoming tachypneic. Based on that the weaning process was discontinued and there was deferred for this morning. This morning , the patient will be given again a sedation holiday and would proceed accordingly. Note that overnight the patient had a CAT scan of the brain that showed no acute abnormalities. Based on the events that occurred in the operating room and based on the documentation and based on my discussion with the anesthesiologist, there is no reason to suspect hypoxic brain injury at this point in time. On today's evaluation, there is no significant bronchospasm wheezing. The patient and accommodation bronchodilators and steroids. There is a concern for urine checked infection and for that reason the patient was started on IV Rocephin. She is having a low-grade fever. Further recommendations are to follow based on her overall progress. The patient is currently in the intensive care unit. Family will be updated on her condition. There is a critically care evaluation. 35 minutes. Time with Patient: Greater than 30
[2018-05-06] MEDS: MAGNESIUM SULFATE-D5W PMX 1 GM in DEXTROSE/WATER 1 100ML.BAG IVPB SCH ×2 (08:07→09:37)
--- NOTE | 2018-05-06 08:23 | XR ---
EXAMINATION TYPE: XR chest 1V DATE OF EXAM: 05/06/2018 COMPARISON: 05/05/2018 HISTORY: 32-year-old female bronchospasm TECHNIQUE: Single frontal view of the chest is obtained. FINDINGS: ET tube has been pulled back now 2.2 cm from the ta. NG tube courses below the diaphragm. Heart n ormal size. Left basilar retrocardiac opacity persists with possible trace left effusion. IMPRESSION: 1. ET tube pulled back with tip now 2.2 cm from the ta. 2. Persistent patchy left basilar and retrocardiac atelectasis or infiltrate.
[2018-05-06] MEDS: ENOXAPARIN 40 MG/0.4 ML SYRINGE SQ SCH (09:36)
[2018-05-06] MEDS: FAMOTIDINE 20 MG/2 ML VIAL IV SCH ×2 (09:37→20:17)
[2018-05-06 12:44] LABS: Glucose,Whole Blood 141 mg/dL (75-99)
[2018-05-06] MEDS: SODIUM CHLORIDE 0.9% 1,000 ML IV SCH ×3 (12:45→23:03)
--- NOTE | 2018-05-06 15:29 | P.PN ---
Subjective Progress Note Date: 05/06/18 Patient seen and evaluated. Family and friends at bedside. Patient had acute bronchospasm immediately upon induction during her surgery hence her umbilical hernia surgery was canceled. She is sitting at bedside. She has been extubated. Per discussion with the care team, she's been more confused. She is unaware of the day, time, and location where she is presently. She does remember her children. At this time she has short-term memory impairment. Objective - Vital Signs Vital signs: Vital Signs Temp 97.9 F 05/06/18 12:00 Pulse 88 05/06/18 12:04 Resp 17 05/06/18 12:00 BP 105/55 05/06/18 12:00 Pulse Ox 97 05/06/18 12:00 Intake & Output 05/05/18 05/06/18 05/06/18 18:59 06:59 18:59 Intake Total 700 1559.150 772.311 Output Total 1500 1240 625 Balance -800 319.150 147.311 Weight 115.5 kg Intake: IV 700 1200 500 Sodium Chloride 0.9% 1, 1200 500 000 ml @ 100 mls/hr IV . Q10H [facility] Rx#:[id number] Intake, IV Titration 359.150 272.311 Amount Empty Bag 1 bag @ 10 MCG/ 340.350 72.311 KG/MIN 6.17 mls/hr IV . [id number] [facility] with Propofol 1,000 mg Rx#:[id number] Magnesium Sulfate-D5w Pmx 200 1 gm In Dextrose/Water 1 100ml.bag @ 100 mls/hr IVPB Q1H [facility] Rx#: [id number] fentaNYL (PF) 2,500 mcg 18.8 In Sodium Chloride 0.9% 200 ml @ Per Protocol IV .Q0M [facility] Rx#:[id number] Output: Urine 1500 1240 625 Other: Voiding Method Indwelling Catheter Indwelling Catheter Bedside Commode - Exam GENERAL: Well developed and in no acute distress. Pleasant. HEENT: No sclera icterus. Extraocular movements grossly intact. Moist buccal mucosa. Head is atraumatic, normocephalic. Hears conversational speech. No nasal drainage. NECK: Supple without lymphadenopathy. No JV distention. CHEST: Non-labored respirations and equal bilateral excursions. CARDIOVASCULAR: Regular rate and rhythm. Palpable 2+ radial pulses. ABDOMEN: Soft, nontender. Nondistended. MUSCULOSKELETAL: No clubbing, cyanosis or edema. NEUROLOGIC: No focal or lateralizing signs. PSYCH: Appropriate affect. Alert to self. SKIN: Good skin turgor. Well perfused. - Labs CBC & Chem 7: 05/06/18 04:36 05/06/18 04:36 Labs: Abnormal Lab Results - Last 24 Hours (Table) 05/05/18 05/06/18 05/06/18 Range/Units 18:03 04:36 04:36 WBC 18.3 H (3.8-10.6) k/uL Neutrophils # 16.8 H (1.3-7.7) k/uL ABG Total CO2 (19-24) mmol/L ABG O2 Saturation (94-97) % Glucose 193 H (74-99) mg/dL POC Glucose (mg/dL) 167 H (75-99) mg/dL Urine Appearance (Clear) Urine Protein (Negative) Urine Ketones (Negative) Urine Blood (Negative) Ur Leukocyte Esterase (Negative) Urine RBC (0-5) /hpf Urine WBC (0-5) /hpf Urine Mucus (None) /hpf 05/06/18 05/06/18 05/06/18 Range/Units 05:20 06:20 06:30 WBC (3.8-10.6) k/uL Neutrophils # (1.3-7.7) k/uL ABG Total CO2 26 H (19-24) mmol/L ABG O2 Saturation 97.7 H (94-97) % Glucose (74-99) mg/dL POC Glucose (mg/dL) 188 H (75-99) mg/dL Urine Appearance Cloudy H (Clear) Urine Protein 1+ H (Negative) Urine Ketones Trace H (Negative) Urine Blood Large H (Negative) Ur Leukocyte Esterase Trace H (Negative) Urine RBC >182 H (0-5) /hpf Urine WBC 44 H (0-5) /hpf Urine Mucus Rare H (None) /hpf 05/06/18 Range/Units 12:42 WBC (3.8-10.6) k/uL Neutrophils # (1.3-7.7) k/uL ABG Total CO2 (19-24) mmol/L ABG O2 Saturation (94-97) % Glucose (74-99) mg/dL POC Glucose (mg/dL) 141 H (75-99) mg/dL Urine Appearance (Clear) Urine Protein (Negative) Urine Ketones (Negative) Urine Blood (Negative) Ur Leukocyte Esterase (Negative) Urine RBC (0-5) /hpf Urine WBC (0-5) /hpf Urine Mucus (None) /hpf Microbiology - Last 24 Hours (Table) 05/05/18 20:22 Gram Stain - Preliminary Sputum Sputum Culture - Preliminary - Imaging and Cardiology Chest x-ray: report reviewed, image reviewed CT Scan - head: report reviewed, image reviewed (Images reviewed without acute event identified) Assessment and Plan (1) Ventral hernia without obstruction or gangrene Current Visit: Yes Status: Acute Code(s): K43.9 - VENTRAL HERNIA WITHOUT OBSTRUCTION OR GANGRENE SNOMED Code(s): 162829049 (2) Acute bronchospasm Current Visit: Yes Status: Acute Code(s): J98.01 - ACUTE BRONCHOSPASM SNOMED Code(s): 61995564880976 (3) Asthma Current Visit: Yes Status: Acute Code(s): J45.909 - UNSPECIFIED ASTHMA, UNCOMPLICATED SNOMED Code(s): 634410128 (4) Acute respiratory failure Current Visit: Yes Status: Acute Code(s): J96.00 - ACUTE RESPIRATORY FAILURE , UNSP W HYPOXIA OR HYPERCAPNIA SNOMED Code(s): 76977003 (5) Acute memory impairment Current Visit: Yes Status: Acute Code(s): R41.3 - OTHER AMNESIA SNOMED Code(s): 651590601 Plan: 1. Acute bronchospasm, management per pulmonary. 2. Patient is currently undergoing cognitive evaluation. 3. Discharge when medically stable. Critical care time 32 minutes
[2018-05-06 18:26] LABS: Glucose,Whole Blood 151 mg/dL (75-99)
[2018-05-06 23:09] LABS: Glucose,Whole Blood 158 mg/dL (75-99)
[2018-05-07] MEDS: INSULIN ASPART 100 UNIT/ML 1 ML 10 ML VIAL SQ SCH ×5 (01:38→21:59)
[2018-05-07] MEDS: IPRATROPIUM-ALBUTEROL 3 ML NEB INHALATION SCH ×5 (03:38→20:21)
[2018-05-07 05:03] LABS: Basophils % (A) 0 %; Eosinophils % (A) 0 %; HCT 36.9 % (34.0-46.0); HGB 11.8 gm/dL (11.4-16.0); Lymphocytes % (A) 7 %; MCH 28.2 pg (25.0-35.0); MCHC 32.1 g/dL (31.0-37.0); MCV 87.9 fL (80.0-100.0); Mean Platelet Volume 6.6; Monocytes # (A) 0.3 k/uL (0-1.0); Monocytes % (A) 2 %; Neutrophils % (A) 91 %; Platelet Count 268 k/uL (150-450); RBC 4.19 m/uL (3.80-5.40); RDW 14.4 % (11.5-15.5); WBC 14.3 k/uL (3.8-10.6)
[2018-05-07 05:13] LABS: Anion Gap 6 mmol/L; Blood Urea Nitrogen 16 mg/dL (7-17); Calcium 8.5 mg/dL (8.4-10.2); Carbon Dioxide 25 mmol/L (22-30); Chloride 110 mmol/L (98-107); Glucose 156 mg/dL (74-99); Magnesium 2.5 mg/dL (1.6-2.3); Phosphorus 3.4 mg/dL (2.5-4.5); Potassium 4.7 mmol/L (3.5-5.1); Sodium 141 mmol/L (137-145)
[2018-05-07 06:33] LABS: Glucose,Whole Blood 149 mg/dL (75-99)
[2018-05-07] MEDS: methylPREDNISolone SOD SUCCI 125 MG/2 ML VIAL IV SCH (06:40)
--- NOTE | 2018-05-07 06:55 | XR ---
EXAMINATION TYPE: XR chest 1V DATE OF EXAM: 05/07/2018 HISTORY: bronchospasm. REFERENCE: Previous study dated 05/06/2018. FINDINGS: The patient has been extubated. The patient's NG tube has been removed. There is minimal atelectasis at the left lung base. There is blunting of left CP angle and I cannot e xclude a small effusion. Heart size is upper limits of normal. IMPRESSION: 1. MINIMAL ATELECTASIS, LEFT LUNG BASE. 2. SMALL LEFT EFFUSION.
--- NOTE | 2018-05-07 08:50 | P.PN ---
Progress Note - Text Progress Note Date: 05/07/18 The patient is alert awake in her bed. She denies a significant abdominal pain. She has some vocal hoarseness. Per the patient's family she has some short-term memory loss. Apparently the patient has not swallow anything. On exam her vital signs are stable. Her abdomen is soft. Incision sites are clean dry and intact. Status post robotic-assisted umbilical hernia repair. Respiratory failure secondary to asthma. Patient will continue to receive supportive care. She will be discharged home when cleared by medicine..
[2018-05-07] MEDS: ENOXAPARIN 40 MG/0.4 ML SYRINGE SQ SCH (08:57)
[2018-05-07] MEDS: FAMOTIDINE 20 MG/2 ML VIAL IV SCH ×2 (08:57→21:21)
[2018-05-07] MEDS: BUDESONIDE 1 MG/2 ML NEBU INHALATION SCH ×2 (08:57→20:21)
[2018-05-07] MEDS: cefTRIAXone IN SWFI 1,000 MG/10 ML SYRINGE IVP SCH (08:57)
[2018-05-07] MEDS ORDERED: predniSONE 10 MG TAB PO STA (09:43)
--- NOTE | 2018-05-07 11:08 | P.PN ---
Subjective Progress Note Date: 05/07/18 32-year-old female patient with a difficult post intubation course. The patient came in to undergo a ventral hernia repair. The patient was induced by anesthesia. The patient was given a combination of other milligrams of lidocaine, 50 mg of rocuronium, 2 mg of Versed and 50 g of fentanyl for induction. Following that, the patient was intubated. Immediately postintubation, and it was very difficult to bag. There is to the volumes were low. The patient progressively become hypoxic. There was a drop in the pulse ox and there was no and bilateral CO2. The patient was extremely bronchospastic and wheezy. It was difficult to bag. The patient was given epinephrine IV without much improvement in the airway pressures. A total of 100 g of epinephrine was given. Subsequently the patient became bradycardic. Heart rate dropped in the mid 50s. She was given a dose of atropine 1 mg. She continued to drop her saturations on the day low 40s. A fiberoptic scope was used to confirm due to positioning. It was difficult to pass the ET tube to visualized airways. The procedure was aborted. Subsequently, the heart rate and the blood pressure stabilized and the tube positioning was confirmed again. The shins phosphorus came up in the mid 90s. She was transferred to recovery. I was asked to evaluate this patient in the recovery room At the time of arrival at around 4:10 PM, the patient was sedated with Diprivan and she was very calm and comfortable. She had received a total of 8 mg of Versed and 2 mg of Ativan. She was successful the mechanical ventilator. She is currently on assist control mode at the rate of 16, tidal volume of 450, FiO2 of 50% and PEEP of 5. Her blood gases was done and patient showed a pH of 7.31 with a pCO2 of 86 and pO2 of 385 and this was done and FiO2 of 100%. Stat chest x-ray was ordered and the patient's ET tube was seen in the right mainstem bronchus. The tube was pulled back by 2 cm and currently she is on 22 cm lip line. Rest on that equal and bilateral. Peak airway pressure is 21. The patient is having equal and symmetrical breath sounds. Minimal expiratory wheezing is noted. She is hemodynamically stable. Heart rate is sinus at the rate of 105. Pulse ox is 95% on above-mentioned vent setting with an FiO2 of 40 %. Obviously procedure was aborted. No surgery was done. A Sprague catheter was inserted and the urine output was in order of 30 mL he had she is also receiving IV fluids and currently she is on 65 mL of lactated Ringer. The preop blood work was all within normal and the patient had a normal renal function. Patient is known to have bronchial asthma. She also has history of lupus. She has had previous history of pericarditis. She has been maintained on O2 scene and Plaquenil on outpatient basis. She is also Ventolin estimate basis. No reported or established history of obstructive sleep apnea. Note that the patient had a normal and uneventful intubation and the cords were seen. The direct laryngoscopy. A CAT scan of the chest that was done on 2017 showed no acute abnormalities identified and hiatal hernia. No parenchymal abnormalities. No mediastinal lymphadenopathy. The mediastinal masses. On 05/06/2018 I'm seeing this patient for a follow-up. The patient is currently in the intensive care unit. However efforts to wean the patient off the mechanical ventilator failed yesterday. As the patient was being weaned off the Diprivan, she was getting agitated and she never got to a point where she was able to follow commands or answer questions. I suspected that there was some residual drug effect disturbing our weaning process. The patient was not following any commands. She was thrashing. She was getting agitated. As such, we decided to keep the patient on sedation. She got moved to the intensive care unit. Overnight she was kept on a mechanical ventilator and this morning she is on a combination of Diprivan and fentanyl for sedation. Diprivan earlier this morning was at 50 g per KG per minute. The patient is also on no dose of fentanyl drip pH is very calm and comfortable. She is synchronous with the mechanical ventilator and currently she is on assist control of 16, tidal volume of 450, FiO2 of 40% and a PEEP of 5. The blood gases from this morning showed a pH of 7.41 with a pCO2 of 40. PO2 of 91. The peak airway pressure is 27. As mentioned earlier the patient intubated by 7.5 ET tube. No difficulties suctioning her through the orotracheal tube. Able to advanced to suction through the orotracheal tube without any major difficulties. The chest x-ray from today shows no acute abnormalities. Note that the patient overnight was having a low-grade fever with a temperature max of 100.9. UA was abnormal and the patient was started on IV Rocephin. She is hemodynamically stable. She is producing adequate amount of urine output. The white cell count this morning is at 18.3. Rest of the blood work and electrodes are all within normal limits. No major bronchospasm and wheezing. She is on bronchodilators. She is on IV Solu-Medrol. She is on Pulmicort Respules. She is on DVT and GI prophylaxis. CAT scan of the brain was done yesterday and it showed no acute abnormalities. On 05/07/2018, the patient remains extubated without having any major respiratory difficulties. Nevertheless the mother some neurologic deficits. The patient is having some memory issues. She cannot remember events or short- term events. At other times she becomes disoriented. No headaches. No neck stiffness. No focal neurological deficits. No agitation. There is episodes of brief confusion and for that reason a CAT scan of the brain was done and it was negative and a neurology consultation was also requested. As far the swallowing, there is improving. The patient does not have any throat pain. She was having initially some difficulties in swallowing and this gradually improved and currently we are advancing her to soft. She is afebrile. No respiratory difficulties for now. She is on empiric antibiotic coverage with IV Rocephin. She is on Pulmicort Respules. She is on DuoNeb nebulized treatment [id number]. Objective - Vital Signs Vital signs: Vital Signs Temp 97.3 F L 05/07/18 08:00 Pulse 83 05/07/18 11:00 Resp 26 H 05/07/18 11:00 BP 115/64 05/07/18 09:00 Pulse Ox 98 05/07/18 09:00 Intake & Output 05/06/18 05/07/18 05/07/18 18:59 06:59 18:59 Intake Total 1569.500 2120 400 Output Total 925 980 0 Balance 447.311 220 400 Weight 112.7 kg 112.7 kg Intake: IV 1100 1200 400 Sodium Chloride 0.9% 1, 1100 1200 400 000 ml @ 100 mls/hr IV . Q10H [facility] Rx#:[id number] Intake, IV Titration 272.311 Amount Empty Bag 1 bag @ 10 MCG/ 72.311 KG/MIN 6.17 mls/hr IV . [id number] [facility] with Propofol 1,000 mg Rx#:[id number] Magnesium Sulfate-D5w Pmx 200 1 gm In Dextrose/Water 1 100ml.bag @ 100 mls/hr IVPB Q1H [facility] Rx#: [id number] Output: Urine 925 980 0 Other: Voiding Method Bedside Commode Bedside Commode - Exam Gen. appearance, comfortable likely distress resting comfortably in bed. Head exam was generally normal. There was no scleral icterus or corneal arcus. Mucous membranes were moist. Neck was supple and without jugular venous distension, thyromegaly, or carotid bruits. Carotids were easily palpable bilaterally. There was no adenopathy. Lungs other records symmetrical bilaterally Cardiac exam revealed the PMI to be normally situated and sized. The rhythm was regular and no extrasystoles were noted during several minutes of auscultation. The first and second heart sounds were normal and physiologic splitting of the second heart sound was noted. There were no murmurs, rubs, clicks, or gallops. Abdominal exam revealed normal bowel sounds. The abdomen was soft, non-tender, and without masses, organomegaly, or appreciable enlargement of the abdominal aorta. Examination of the extremities revealed easily palpable radial, femoral and pedal pulses. There was no cyanosis, clubbing or edema. Examination of the skin revealed no evidence of significant rashes, suspicious appearing nevi or other concerning lesions. Neurologically the patient is having episodes of confusion and memory loss. This is essentially short-term memory loss. No focal neurological deficits. Neurologic exam is nonfocal. - Labs CBC & Chem 7: 05/07/18 04:23 05/07/18 04:23 Labs: Abnormal Lab Results - Last 24 Hours (Table) 05/06/18 05/06/18 05/06/18 Range/Units 12:42 18:24 23:07 WBC (3.8-10.6) k/uL Neutrophils # (1.3-7.7) k/uL Chloride (98-107) mmol/L Glucose (74-99) mg/dL POC Glucose (mg/dL) 141 H 151 H 158 H (75-99) mg/dL Magnesium (1.6-2.3) mg/dL 05/07/18 05/07/18 05/07/18 Range/Units 04:23 04:23 06:31 WBC 14.3 H (3.8-10.6) k/uL Neutrophils # 13.0 H (1.3-7.7) k/uL Chloride 110 H (98-107) mmol/L Glucose 156 H (74-99) mg/dL POC Glucose (mg/dL) 149 H (75-99) mg/dL Magnesium 2.5 H (1.6-2.3) mg/dL Microbiology - Last 24 Hours (Table) 05/05/18 20:22 Gram Stain - Final Sputum Sputum Culture - Final Assessment and Plan Plan: Assessment 1 acute hypoxic respiratory failure. The patient had difficulties with airway management and pulmonary management including oxygenation and ventilation post intubation. Events reported by anesthesia was noted. The patient was extubated without any major difficulties and currently she is on nasal cannula at 2 L/m. No stridor. Consider right mainstem intubation. Consider anaphylaxis or an ALLERGIC reaction to latex. 2 acute hemodynamic instability secondary to hypoxemia, recovered. 3 obesity 4 ventral hernia and the procedure was canceled due to the events mentioned above 5 history of lupus/RA 6 history of pericarditis 7 altered mentation, confusion with possibility of an acute hypoxic encephalopathy. Plan Advance diet as tolerated. Resume her home medication. Neurologic consultation regarding her ongoing confusion and altered mentation.
--- NOTE | 2018-05-07 12:20 | P.CNNES ---
History of Present Illness Consult date: 05/07/18 Reason for Consult: Patient with recent confusion and anoxic encehalopathy. History of Present Illness: This patient is a 32-year-old right-handed white female who was admitted to [facility] on 05/05/2018 for elective ventral hernia surgery. On the date of her surgical procedure the patient had a difficult intubation by anesthesia. She became very sedated with the intubation and became hypoxic. There was a drop in her pulse oximetry and she became extremely bronchospastic with wheezing. She required bagging and was given epinephrine IV without much improvement in her airway. Her heart rate had dropped into the mid 50s. She was given a dose of atropine 1 mg. She continued to show drop in her oxygen saturations into the low 40s. It was difficult to pass ET tube as per the notes of pulmonary medicine. The procedure was aborted and the patient was stabilized and she was intubated. She was placed initially on Diprivan and this was slowly weaned. Patient was extubated 2 days ago and was sent for a computed tomography scan of the brain as she shows some signs of cognitive impairment following the procedure. The patient underwent computed tomography scan of the brain on 05/05/2018 which came back negative for any acute changes. Since her procedure the patient still is showing signs of memory impairment and amnesia. She denies any significant headache at this time but does have episodes of confusion. According to the ICU nursing staff she has been repeating herself and just does not seem to be fully cognitive of her total experience in this recent hospitalization. her sister who is at bedside is also noticed significant change in her overall cognitive functioning. This seems to wax and wane and she does oftentimes repeat herself. There was concern that even after extubation the patient did show cognitive decline. As noted her CAT scan of the brain did come back negative. We are recommending the patient undergo a MRI of the brain as well as a routine EEG to further evaluate for possibility of anoxic encephalopathy following her complicated procedure. Case was discussed today with Dr. Mott who agrees with our recommendations. We will proceed with MRI and EEG testing to be done while the patient is still in the ICU. We have discussed the case in detail with the patient as well as her sister who is at bedside. All of their questions were answered. The patient was able to answer most questions appropriately but did have some perseveration as well as short-term memory loss. According to the sister they have noticed slight improvement as the day goes on. Neurology is now been consulted for further evaluation and recommendations. Review of Systems Constitutional: Denies chills, Denies fever Eyes: denies blurred vision, denies pain Ears, nose, mouth and throat: Denies headache, Denies sore throat Cardiovascular: Denies chest pain, Denies shortness of breath Respiratory: Denies cough Gastrointestinal: Denies abdominal pain, Denies diarrhea, Denies nausea, Denies vomiting Genitourinary: Denies dysuria, Denies hematuria Musculoskeletal: Denies myalgias Integumentary: Denies pruritus, Denies rash Neurological: Reports change in mentation, Reports confusion, Reports memory loss, Denies numbness, Denies weakness Psychiatric: Denies anxiety, Denies depression Endocrine: Denies fatigue, Denies weight change Past Medical History Past Medical History: Asthma, Pneumonia, Rheumatoid Arthritis (RA) Additional Past Medical History / Comment(s): Lupus, RA, pericarditis, chronic neck pain, chronic headaches, History of Any Multi-Drug Resistant Organisms: None Reported Past Surgical History: Ear Surgery, Tonsillectomy Additional Past Surgical History / Comment(s): titanium plate neck sx, cosmetic sx as child on ears Past Anesthesia/Blood Transfusion Reactions: No Reported Reaction Past Psychological History: Anxiety, Depression Smoking Status: Never smoker Past Alcohol Use History: Rare Past Drug Use History: None Reported - Past Family History Mother Family Medical History: COPD, Hypertension, Myocardial Infarction ([place]), Osteoarthritis (OA), Sleep Apnea/CPAP/BIPAP, Thyroid Disorder Father Family Medical History: Cancer Additional Family Medical History / Comment(s): throat Medications and Allergies Home Medications Medication Instructions Recorded Confirmed Type Albuterol Inhaler [Ventolin Hfa 2 puff INHALATION RT-Q4H PRN 07/30/16 05/05/18 History Inhaler] Albuterol Nebulized [Ventolin 2.5 mg INHALATION RT-Q6H PRN 07/30/16 05/05/18 History Nebulized] Colchicine 0.6 mg PO BID 07/30/16 05/05/18 History Hydroxychloroquine Sulfate 400 mg PO HS 03/24/18 05/05/18 History [Plaquenil] Ibuprofen [Motrin] 600 mg PO TID 03/24/18 05/05/18 History Omeprazole 20 mg PO DAILY 05/05/18 05/05/18 History Allergies Allergy/AdvReac Type Severity Reaction Status Date / Time hepatitis B virus vaccine Allergy Itching/swe Verified 05/05/18 16:12 lling latex Allergy Rash/Hives Verified 05/05/18 16:12 duloxetine [From [facility]] AdvReac Hearing Verified 05/05/18 16:12 Loss Physical Examination - Vital Signs Vital Signs: Vital Signs Temp Pulse Resp BP Pulse Ox 05/07/18 11:00 83 26 H 05/07/18 10:00 73 19 05/07/18 09:18 87 05/07/18 09:00 62 19 115/64 98 05/07/18 08:57 68 05/07/18 08:00 97.3 F L 68 103/58 97 05/07/18 07:00 73 18 84/56 95 05/07/18 06:00 81 19 115/69 95 05/07/18 05:00 76 20 110/61 95 05/07/18 04:00 98.8 F 70 15 113/55 96 05/07/18 03:51 71 05/07/18 03:38 82 05/07/18 03:00 72 16 112/60 95 05/07/18 02:00 78 15 109/60 96 05/07/18 01:00 86 19 121/69 95 05/07/18 00:05 85 05/07/18 00:00 98.5 F 74 19 110/62 99 05/06/18 23:46 75 05/06/18 23:00 84 16 114/62 93 L 05/06/18 22:00 84 18 118/66 96 05/06/18 21:14 80 13 119/61 100 05/06/18 21:00 85 19 119/61 98 05/06/18 20:35 76 05/06/18 20:18 68 05/06/18 20:00 98.1 F 77 31 H 107/59 99 05/06/18 19:00 78 16 116/64 98 05/06/18 18:00 98.8 F 77 21 113/64 98 05/06/18 17:00 81 17 99/52 94 L 05/06/18 16:09 88 05/06/18 16:00 72 9 L 123/51 97 05/06/18 15:55 90 97 05/06/18 15:00 76 22 94 L 05/06/18 14:00 81 37 H 113/65 94 L 05/06/18 13:00 83 17 102/54 95 Intake and Output 05/06/18 05/07/18 05/07/18 22:59 06:59 14:59 Intake Total 800 800 450 Output Total 600 680 0 Balance 200 120 450 Intake: IV 800 800 450 Sodium Chloride 0.9% 1, 800 800 450 000 ml @ 100 mls/hr IV . Q10H [facility] Rx#:[id number] Output: Urine 600 680 0 Other: Voiding Method Bedside Commode Bedside Commode # Voids 1 Weight 112.7 kg 112.7 kg - Constitutional General appearance: cooperative, obese - EENT EENT: PERRL, mucous membranes moist - Respiratory Respiratory: lungs clear, normal breath sounds - Cardiovascular Cardiovascular: regular rate, normal S1, normal S2 Extremities: no peripheral edema bilaterally - Gastrointestinal Gastrointestinal: normoactive bowel sounds - Integumentary Integumentary: normal - Neurologic Cranial nerve examination: PERRL, EOMI, VFF, face symmetric, tongue midline, intact gag reflex, intact corneal reflex, normal palatal elevation Speech examination: intact Sensorimotor examination: intact Motor examination - right side: 4/5: biceps, triceps, wrist flexion, wrist extension, ui software developer, hip flexors, knee extensors, dorsiflexion, toe extension (EHL) , plantarflexion Motor examination - left side: 4/5: biceps, triceps, wrist flexion, wrist extension, ui software developer, hip flexors, knee extensors, dorsiflexion, toe extension (EHL) , plantarflexion Reflex and gait examination: intact Reflexes: 1+: ankle, bicep, knee, tricep - Musculoskeletal Musculoskeletal: no pain - Psychiatric Psychiatric: mood/affect appropriate, cooperative Results - Laboratory Findings CBC and BMP: 05/07/18 04:23 05/07/18 04:23 Abnormal Lab Findings: Abnormal Labs 05/05/18 05/05/18 05/05/18 14:08 14:08 14:40 WBC 15.9 H Neutrophils # 13.6 H ABG pH 7.31 L ABG pCO2 46 H ABG pO2 385 H ABG Total CO2 25 H ABG O2 Saturation 100.0 H Chloride Glucose 182 H POC Glucose (mg/dL) Magnesium Urine Appearance Urine Protein Urine Ketones Urine Blood Ur Leukocyte Esterase Urine RBC Urine WBC Urine Mucus 05/05/18 05/06/18 05/06/18 18:03 04:36 04:36 WBC 18.3 H Neutrophils # 16.8 H ABG pH ABG pCO2 ABG pO2 ABG Total CO2 ABG O2 Saturation Chloride Glucose 193 H POC Glucose (mg/dL) 167 H Magnesium Urine Appearance Urine Protein Urine Ketones Urine Blood Ur Leukocyte Esterase Urine RBC Urine WBC Urine Mucus 05/06/18 05/06/18 05/06/18 05:20 06:20 06:30 WBC Neutrophils # ABG pH ABG pCO2 ABG pO2 ABG Total CO2 26 H ABG O2 Saturation 97.7 H Chloride Glucose POC Glucose (mg/dL) 188 H Magnesium Urine Appearance Cloudy H Urine Protein 1+ H Urine Ketones Trace H Urine Blood Large H Ur Leukocyte Esterase Trace H Urine RBC >182 H Urine WBC 44 H Urine Mucus Rare H 05/06/18 05/06/18 05/06/18 12:42 18:24 23:07 WBC Neutrophils # ABG pH ABG pCO2 ABG pO2 ABG Total CO2 ABG O2 Saturation Chloride Glucose POC Glucose (mg/dL) 141 H 151 H 158 H Magnesium Urine Appearance Urine Protein Urine Ketones Urine Blood Ur Leukocyte Esterase Urine RBC Urine WBC Urine Mucus 05/07/18 05/07/18 05/07/18 04:23 04:23 06:31 WBC 14.3 H Neutrophils # 13.0 H ABG pH ABG pCO2 ABG pO2 ABG Total CO2 ABG O2 Saturation Chloride 110 H Glucose 156 H POC Glucose (mg/dL) 149 H Magnesium 2.5 H Urine Appearance Urine Protein Urine Ketones Urine Blood Ur Leukocyte Esterase Urine RBC Urine WBC Urine Mucus Assessment and Plan (1) Anoxic-ischemic encephalopathy Current Visit: Yes Status: Acute Code(s): G93.1 - ANOXIC BRAIN DAMAGE, NOT ELSEWHERE CLASSIFIED; I67.82 - CEREBRAL ISCHEMIA SNOMED Code(s): 459314250 (2) Ventral hernia Current Visit: Yes Status: Acute Code(s): K43.9 - VENTRAL HERNIA WITHOUT OBSTRUCTION OR GANGRENE SNOMED Code(s): 373225161 (3) Acute bronchospasm Current Visit: Yes Status: Acute Code(s): J98.01 - ACUTE BRONCHOSPASM SNOMED Code(s): 58943868141417 (4) Acute memory impairment Current Visit: Yes Status: Acute Code(s): R41.3 - OTHER AMNESIA SNOMED Code(s): 569835443 Plan: This patient is a 32-year-old right hand white female who was admitted to Hospital on 05/05/2018 for elective ventral hernia surgery. Patient had complications with preanesthesia prior to her procedure and showed signs of respiratory distress. She became hypotensive and bradycardic and required resuscitation. She was intubated and subsequently was able to be extubated off of the ventilator. Today she continues to have evidence on clinical examination of memory loss and cognitive impairment. She did undergo a computed tomography scan of the brain on 05/05/2018 which was reported to be negative. On neurological examination today in the intensive care unit the patient does show signs of mild cognitive impairment. She is making paraphasic errors as well as signs of perseveration. We have recommended the patient undergo an MRI of the brain to rule out hypoxic injury to the brain. We will also obtain a routine EEG for further assessment. Case was discussed today at length with the patient and her sister who is at bedside. All of their questions were answered. We will continue close neurological follow-up of this patient in the intensive care unit. Depending on her MRI results further recommendations will be given. Overall prognosis at this time remains guarded. We will continue close neurological follow-up with this patient in the intensive care unit. Time with Patient: Greater than 30
--- NOTE | 2018-05-07 13:41 | P.PN ---
Subjective Progress Note Date: 05/07/18 Principal diagnosis: Acute hypoxic respiratory failure Elective ventral hernia repair; canceled secondary to 1 05/07/2018, the patient remains extubated without having any major respiratory difficulties. Nevertheless the mother some neurologic deficits. The patient is having some memory issues. She cannot remember events or short-term events. At other times she becomes disoriented. No headaches. No neck stiffness. No focal neurological deficits. No agitation. There is episodes of brief confusion and for that reason a CAT scan of the brain was done and it was negative and a neurology consultation was also requested. As far the swallowing , there is improving. The patient does not have any throat pain. She was having initially some difficulties in swallowing and this gradually improved and currently we are advancing her to soft. She is afebrile. No respiratory difficulties for now. She is on empiric antibiotic coverage with IV Rocephin. She is on Pulmicort Respules. She is on DuoNeb nebulized treatment around-the- clock. Objective - Vital Signs Vital signs: Vital Signs Temp 97.4 F L 05/07/18 12:00 Pulse 78 05/07/18 12:30 Resp 14 05/07/18 12:00 BP 103/85 05/07/18 12:00 Pulse Ox 96 05/07/18 12:00 Intake & Output 05/06/18 05/07/18 05/07/18 18:59 06:59 18:59 Intake Total 0066.765 4448 450 Output Total 925 980 0 Balance 447.311 220 450 Weight 112.7 kg 112.7 kg Intake: IV 1100 1200 450 Sodium Chloride 0.9% 1, 1100 1200 450 000 ml @ 100 mls/hr IV . Q10H [facility] Rx#:[id number] Intake, IV Titration 272.311 Amount Empty Bag 1 bag @ 10 MCG/ 72.311 KG/MIN 6.17 mls/hr IV . [id number] [facility] with Propofol 1,000 mg Rx#:[id number] Magnesium Sulfate-D5w Pmx 200 1 gm In Dextrose/Water 1 100ml.bag @ 100 mls/hr IVPB Q1H [facility] Rx#: [id number] Output: Urine 925 980 0 Other: Voiding Method Bedside Commode Bedside Commode Toilet # Voids 1 - Exam Gen. appearance, comfortable likely distress resting comfortably in bed. Head exam was generally normal. There was no scleral icterus or corneal arcus. Mucous membranes were moist. Neck was supple and without jugular venous distension, thyromegaly, or carotid bruits. Carotids were easily palpable bilaterally. There was no adenopathy. Lungs other records symmetrical bilaterally Cardiac exam revealed the PMI to be normally situated and sized. The rhythm was regular and no extrasystoles were noted during several minutes of auscultation. The first and second heart sounds were normal and physiologic splitting of the second heart sound was noted. There were no murmurs, rubs, clicks, or gallops. Abdominal exam revealed normal bowel sounds. The abdomen was soft, non-tender, and without masses, organomegaly, or appreciable enlargement of the abdominal aorta. Examination of the extremities revealed easily palpable radial, femoral and pedal pulses. There was no cyanosis, clubbing or edema. Examination of the skin revealed no evidence of significant rashes, suspicious appearing nevi or other concerning lesions. Neurologically the patient is having episodes of confusion and memory loss. This is essentially short-term memory loss. No focal neurological deficits. Neurologic exam is nonfocal. - Labs CBC & Chem 7: 05/07/18 04:23 05/07/18 04:23 Labs: Abnormal Lab Results - Last 24 Hours (Table) 05/06/18 05/06/18 05/07/18 Range/Units 18:24 23:07 04:23 WBC 14.3 H (3.8-10.6) k/uL Neutrophils # 13.0 H (1.3-7.7) k/uL Chloride (98-107) mmol/L Glucose (74-99) mg/dL POC Glucose (mg/dL) 151 H 158 H (75-99) mg/dL Magnesium (1.6-2.3) mg/dL 05/07/18 05/07/18 Range/Units 04:23 06:31 WBC (3.8-10.6) k/uL Neutrophils # (1.3-7.7) k/uL Chloride 110 H (98-107) mmol/L Glucose 156 H (74-99) mg/dL POC Glucose (mg/dL) 149 H (75-99) mg/dL Magnesium 2.5 H (1.6-2.3) mg/dL Microbiology - Last 24 Hours (Table) 05/05/18 20:22 Gram Stain - Final Sputum Sputum Culture - Final Assessment and Plan Assessment: 1. acute hypoxic respiratory failure. - The patient was extubated without any major difficulties and currently she is on nasal cannula at 2 L/m. - Critical care/pulmonary service is following 2. acute hemodynamic instability secondary to hypoxemia; - Resolved; patient's blood pressure remained stable at 103/85 - We will continue to monitor closely 3. obesity 4. ventral hernia and the procedure was canceled due to the events mentioned above 5. history of lupus/RA 6. history of pericarditis 7. altered mentation, confusion with possibility of an acute hypoxic encephalopathy. - Neurology is consulted; await further recommendations 8. DVT prophylaxis CODE STATUS; full code Time with Patient: Greater than 30
[2018-05-07] MEDS: SODIUM CHLORIDE 0.9% 1,000 ML IV SCH (15:46)
[2018-05-07 17:21] LABS: Glucose,Whole Blood 130 mg/dL (75-99)
--- NOTE | 2018-05-07 19:04 | MR ---
EXAMINATION TYPE: MR brain wo con DATE OF EXAM: 05/07/2018 COMPARISON: 05/05/2018 CT brain HISTORY: Patient with anoxic encephalopathy and confusion CONTRAST: Performed utilizing 0 mL intravenous Gadavist gadolinium contrast. TECHNIQUE: Multiplanar, multiecho imaging on a 3.0 Amita magnet is performed through the brain. Stud y is not performed within 24 hours of arrival to the hospital. The craniovertebral junction is normal. The pituitary is normal. Diffusion-weighted imaging is performed. No abnormal hyperintensity is present to suggest an acute i ntracranial infarct or acute ischemic change. No significant signal changes evident suggest ischemic changes. No suspicious focal changes within th e basal ganglion are evident. Ventricles and sulci are appropriate for the patient age. IMPRESSIONS: 1. No suspicious changes for acute anoxic injury.
[2018-05-07] MEDS ORDERED: HYDROXYCHLOROQUINE SULFATE 200 MG TAB PO SCH (21:00)
[2018-05-07 21:02] LABS: Glucose,Whole Blood 129 mg/dL (75-99)
[2018-05-07] MEDS: COLCHICINE 0.6 MG EACH PO SCH (21:21)
[2018-05-08] MEDS: IPRATROPIUM-ALBUTEROL 3 ML NEB INHALATION SCH ×4 (00:17→11:16)
[2018-05-08 03:59] LABS: Basophils % (A) 0 %; Eosinophils % (A) 0 %; HCT 40.5 % (34.0-46.0); HGB 12.9 gm/dL (11.4-16.0); Lymphocytes # (A) 2.7 k/uL (1.0-4.8); Lymphocytes % (A) 22 %; MCH 27.9 pg (25.0-35.0); MCHC 31.9 g/dL (31.0-37.0); MCV 87.4 fL (80.0-100.0); Mean Platelet Volume 6.5; Monocytes # (A) 0.7 k/uL (0-1.0); Monocytes % (A) 5 %; Neutrophils # (A) 8.7 k/uL (1.3-7.7); Neutrophils % (A) 71 %; Platelet Count 291 k/uL (150-450); RBC 4.63 m/uL (3.80-5.40); RDW 14.3 % (11.5-15.5); WBC 12.3 k/uL (3.8-10.6)
[2018-05-08 04:10] LABS: Anion Gap 4 mmol/L; Blood Urea Nitrogen 21 mg/dL (7-17); Carbon Dioxide 29 mmol/L (22-30); Chloride 106 mmol/L (98-107); Glucose 120 mg/dL (74-99); Magnesium 2.2 mg/dL (1.6-2.3); Potassium 4.4 mmol/L (3.5-5.1); Sodium 139 mmol/L (137-145)
--- NOTE | 2018-05-08 06:59 | XR ---
EXAMINATION TYPE: XR chest 1V DATE OF EXAM: 05/08/2018 HISTORY: bronchospasm. REFERENCE: Previous study dated 05/07/2018. FINDINGS: There has been a previous cervical fusion. The heart is mildly enlarged. Lungs appear clear. Pleural spaces are clear. IMPRESSION: MILD CARDIOMEGALY.
[2018-05-08] MEDS: BUDESONIDE 1 MG/2 ML NEBU INHALATION SCH (07:31)
[2018-05-08 08:01] LABS: Glucose,Whole Blood 104 mg/dL (75-99)
[2018-05-08 08:38] VITALS: BP 117/69; RESP 22; TEMP 98
[2018-05-08] MEDS: INSULIN ASPART 100 UNIT/ML 1 ML 10 ML VIAL SQ SCH (08:38)
[2018-05-08] MEDS: COLCHICINE 0.6 MG EACH PO SCH (08:41)
[2018-05-08] MEDS: ENOXAPARIN 40 MG/0.4 ML SYRINGE SQ SCH (08:41)
[2018-05-08] MEDS: cefTRIAXone IN SWFI 1,000 MG/10 ML SYRINGE IVP SCH (08:41)
[2018-05-08] MEDS: FAMOTIDINE 20 MG/2 ML VIAL IV SCH (08:42)
--- NOTE | 2018-05-08 10:12 | P.PN ---
Progress Note - Text Progress Note Date: 05/08/18 The patient feels well. She denies any abdominal pain. She has had no shortness of breath. She apparently has been eating. On exam her vital signs are stable. Her abdomen is soft. Patient will be discharged home after being evaluated by ICU physicians.
--- NOTE | 2018-05-08 11:10 | P.PN ---
Subjective Progress Note Date: 05/08/18 This patient is a 32 year old female being seen in the ICU for episode of anoxic injury following recent surgical procedure. The patient was evaluated yesterday on neurology consultation. She was having slight memory difficulties which seem to be out of place for her age and day-to-day functioning. Her sister who is at bedside yesterday in the ICU also noted cognitive change. Patient was sent for MRI of the brain yesterday for further evaluation. MRI of the brain is reported normal with no evidence of anoxic injury. Patient was also able to complete routine EEG today which was reviewed and her EEG is normal for age. No evidence of any epileptiform discharges. The patient seems to be doing better in terms of her cognitive functioning this morning in the ICU. We recommend she should follow-up in the outpatient neurology clinic in 3- 4 weeks for follow-up and to reassess her overall cognitive functioning at that time. We reviewed the results of the MRI and EEG today with the patient in detail. Plans are for possible discharge home today if cleared by pulmonary medicine. We will continue close neurological follow-up for the patient during this admission. Objective - Vital Signs Vital signs: Vital Signs Temp 98.6 F 05/08/18 04:00 Pulse 60 05/08/18 07:32 Resp 17 05/08/18 04:00 BP 113/71 05/08/18 04:00 Pulse Ox 96 05/08/18 04:00 Intake & Output 05/07/18 05/08/18 05/08/18 18:59 06:59 18:59 Intake Total 500 1000 Output Total 0 Balance 500 1000 Weight 112.7 kg 111.4 kg Intake: IV 500 Sodium Chloride 0.9% 1, 500 000 ml @ 50 mls/hr IV . Q20H [facility] Rx#:[id number] Oral 1000 Output: Urine 0 Other: Voiding Method Toilet Toilet # Voids 2 1 - Exam Physical Examination: PHYSICAL EXAMINATION: Patient is resting comfortably in bed. VITAL SIGNS: Blood pressure is [117/69]. Heart rate is [74]. Respiration is [22] . Temperature is [98.0]. HEENT: Head is atraumatic, neck is supple, there were no carotid bruits. CHEST: Lungs are clear to auscultation and percussion. CARDIAC: S1, S2 normal rate and rhythm. There is no murmur. ABDOMEN: Soft and nontender. Bowel sounds are present. EXTREMITIES: There is no pedal edema. Peripheral pulses are present. Neurological examination: Patient has a nonfocal neurological examination. She is alert and oriented 3. Her remaining neurological examination is nonfocal. - Labs CBC & Chem 7: 05/08/18 03:34 05/08/18 03:34 Labs: Abnormal Lab Results - Last 24 Hours (Table) 05/07/18 05/07/18 05/08/18 Range/Units 17:18 21:01 03:34 WBC 12.3 H (3.8-10.6) k/uL Neutrophils # 8.7 H (1.3-7.7) k/uL BUN (7-17) mg/dL Glucose (74-99) mg/dL POC Glucose (mg/dL) 130 H 129 H (75-99) mg/dL 05/08/18 05/08/18 Range/Units 03:34 07:59 WBC (3.8-10.6) k/uL Neutrophils # (1.3-7.7) k/uL BUN 21 H (7-17) mg/dL Glucose 120 H (74-99) mg/dL POC Glucose (mg/dL) 104 H (75-99) mg/dL Microbiology - Last 24 Hours (Table) 05/05/18 20:22 Gram Stain - Final Sputum Sputum Culture - Final Assessment and Plan (1) Anoxic-ischemic encephalopathy Current Visit: Yes Status: Acute Code(s): G93.1 - ANOXIC BRAIN DAMAGE, NOT ELSEWHERE CLASSIFIED; I67.82 - CEREBRAL ISCHEMIA SNOMED Code(s): 279282157 (2) Ventral hernia Current Visit: Yes Status: Acute Code(s): K43.9 - VENTRAL HERNIA WITHOUT OBSTRUCTION OR GANGRENE SNOMED Code(s): 241816083 (3) Acute bronchospasm Current Visit: Yes Status: Acute Code(s): J98.01 - ACUTE BRONCHOSPASM SNOMED Code(s): 78207578697785 (4) Acute memory impairment Current Visit: Yes Status: Acute Code(s): R41.3 - OTHER AMNESIA SNOMED Code(s): 952376838 Plan: This patient is a 32-year-old female being evaluated for recent episode of severe anoxic hypoxic injury following surgical intervention for umbilical hernia repair. Patient showed slight confusion following attempt for surgery. She was transferred to the ICU and neurology was consulted yesterday due to mental status changes. She was sent for MRI of the brain yesterday the results which are noted above. MRI is entirely normal with no evidence of any anoxic injury to the brain. She also underwent routine EEG today which was reviewed and her EEG is normal for age. We reviewed the results of the MRI and EEG today with the patient in detail. All of her questions were answered. She does seem to show improvement today in terms of her immediate memory and recall. Hopefully she will continue to show gradual improvement over the next several weeks. She may follow-up in the outpatient neurology clinic in 3-4 weeks. She is being considered for discharge home today pending clearance by Dr. Mott. We will continue close neurological follow-up for the patient during this admission.
[2018-05-08 11:29] VITALS: PULSE 92
--- NOTE | 2018-05-08 13:38 | P.PN ---
Subjective Progress Note Date: 05/08/18 32-year-old female patient with a difficult post intubation course. The patient came in to undergo a ventral hernia repair. The patient was induced by anesthesia. The patient was given a combination of other milligrams of lidocaine, 50 mg of rocuronium, 2 mg of Versed and 50 g of fentanyl for induction. Following that, the patient was intubated. Immediately postintubation, and it was very difficult to bag. There is to the volumes were low. The patient progressively become hypoxic. There was a drop in the pulse ox and there was no and bilateral CO2. The patient was extremely bronchospastic and wheezy. It was difficult to bag. The patient was given epinephrine IV without much improvement in the airway pressures. A total of 100 g of epinephrine was given. Subsequently the patient became bradycardic. Heart rate dropped in the mid 50s. She was given a dose of atropine 1 mg. She continued to drop her saturations on the day low 40s. A fiberoptic scope was used to confirm due to positioning. It was difficult to pass the ET tube to visualized airways. The procedure was aborted. Subsequently, the heart rate and the blood pressure stabilized and the tube positioning was confirmed again. The shins phosphorus came up in the mid 90s. She was transferred to recovery. I was asked to evaluate this patient in the recovery room At the time of arrival at around 4:10 PM, the patient was sedated with Diprivan and she was very calm and comfortable. She had received a total of 8 mg of Versed and 2 mg of Ativan. She was successful the mechanical ventilator. She is currently on assist control mode at the rate of 16, tidal volume of 450, FiO2 of 50% and PEEP of 5. Her blood gases was done and patient showed a pH of 7.31 with a pCO2 of 86 and pO2 of 385 and this was done and FiO2 of 100%. Stat chest x-ray was ordered and the patient's ET tube was seen in the right mainstem bronchus. The tube was pulled back by 2 cm and currently she is on 22 cm lip line. Rest on that equal and bilateral. Peak airway pressure is 21. The patient is having equal and symmetrical breath sounds. Minimal expiratory wheezing is noted. She is hemodynamically stable. Heart rate is sinus at the rate of 105. Pulse ox is 95% on above-mentioned vent setting with an FiO2 of 40 %. Obviously procedure was aborted. No surgery was done. A Sprague catheter was inserted and the urine output was in order of 30 mL he had she is also receiving IV fluids and currently she is on 65 mL of lactated Ringer. The preop blood work was all within normal and the patient had a normal renal function. Patient is known to have bronchial asthma. She also has history of lupus. She has had previous history of pericarditis. She has been maintained on O2 scene and Plaquenil on outpatient basis. She is also Ventolin estimate basis. No reported or established history of obstructive sleep apnea. Note that the patient had a normal and uneventful intubation and the cords were seen. The direct laryngoscopy. A CAT scan of the chest that was done on 2017 showed no acute abnormalities identified and hiatal hernia. No parenchymal abnormalities. No mediastinal lymphadenopathy. The mediastinal masses. On 05/06/2018 I'm seeing this patient for a follow-up. The patient is currently in the intensive care unit. However efforts to wean the patient off the mechanical ventilator failed yesterday. As the patient was being weaned off the Diprivan, she was getting agitated and she never got to a point where she was able to follow commands or answer questions. I suspected that there was some residual drug effect disturbing our weaning process. The patient was not following any commands. She was thrashing. She was getting agitated. As such, we decided to keep the patient on sedation. She got moved to the intensive care unit. Overnight she was kept on a mechanical ventilator and this morning she is on a combination of Diprivan and fentanyl for sedation. Diprivan earlier this morning was at 50 g per KG per minute. The patient is also on no dose of fentanyl drip pH is very calm and comfortable. She is synchronous with the mechanical ventilator and currently she is on assist control of 16, tidal volume of 450, FiO2 of 40% and a PEEP of 5. The blood gases from this morning showed a pH of 7.41 with a pCO2 of 40. PO2 of 91. The peak airway pressure is 27. As mentioned earlier the patient intubated by 7.5 ET tube. No difficulties suctioning her through the orotracheal tube. Able to advanced to suction through the orotracheal tube without any major difficulties. The chest x-ray from today shows no acute abnormalities. Note that the patient overnight was having a low-grade fever with a temperature max of 100.9. UA was abnormal and the patient was started on IV Rocephin. She is hemodynamically stable. She is producing adequate amount of urine output. The white cell count this morning is at 18.3. Rest of the blood work and electrodes are all within normal limits. No major bronchospasm and wheezing. She is on bronchodilators. She is on IV Solu-Medrol. She is on Pulmicort Respules. She is on DVT and GI prophylaxis. CAT scan of the brain was done yesterday and it showed no acute abnormalities. On 05/07/2018, the patient remains extubated without having any major respiratory difficulties. Nevertheless the mother some neurologic deficits. The patient is having some memory issues. She cannot remember events or short- term events. At other times she becomes disoriented. No headaches. No neck stiffness. No focal neurological deficits. No agitation. There is episodes of brief confusion and for that reason a CAT scan of the brain was done and it was negative and a neurology consultation was also requested. As far the swallowing, there is improving. The patient does not have any throat pain. She was having initially some difficulties in swallowing and this gradually improved and currently we are advancing her to soft. She is afebrile. No respiratory difficulties for now. She is on empiric antibiotic coverage with IV Rocephin. She is on Pulmicort Respules. She is on DuoNeb nebulized treatment [id number]-gox-mewro. On 05/08/2018, the patient is doing better. Mental status improved. Memory is improving. The patient was seen by neurology. The neuro workup was completed. EEG was within normal. MRI of the brain was within normal limits. The patient is able to eat. Ambulating. No respiratory distress. No other significant events overnight. She is ready for discharge from the pulmonary and critical care standpoint. Objective - Vital Signs Vital signs: Vital Signs Temp 98.0 F 05/08/18 08:00 Pulse 92 05/08/18 11:29 Resp 22 05/08/18 08:00 BP 117/69 05/08/18 08:00 Pulse Ox 95 05/08/18 08:00 Intake & Output 05/07/18 05/08/18 05/08/18 18:59 06:59 18:59 Intake Total 500 1000 Output Total 0 Balance 500 1000 Weight 112.7 kg 111.4 kg Intake: IV 500 Sodium Chloride 0.9% 1, 500 000 ml @ 50 mls/hr IV . Q20H [facility] Rx#:[id number] Oral 1000 Output: Urine 0 Other: Voiding Method Toilet Toilet Toilet # Voids 2 1 1 - Exam Gen. appearance, comfortable likely distress resting comfortably, ambulating Head exam was generally normal. There was no scleral icterus or corneal arcus. Mucous membranes were moist. Neck was supple and without jugular venous distension, thyromegaly, or carotid bruits. Carotids were easily palpable bilaterally. There was no adenopathy. Lungs other records symmetrical bilaterally Cardiac exam revealed the PMI to be normally situated and sized. The rhythm was regular and no extrasystoles were noted during several minutes of auscultation. The first and second heart sounds were normal and physiologic splitting of the second heart sound was noted. There were no murmurs, rubs, clicks, or gallops. Abdominal exam revealed normal bowel sounds. The abdomen was soft, non-tender, and without masses, organomegaly, or appreciable enlargement of the abdominal aorta. Examination of the extremities revealed easily palpable radial, femoral and pedal pulses. There was no cyanosis, clubbing or edema. Examination of the skin revealed no evidence of significant rashes, suspicious appearing nevi or other concerning lesions. Neurologically No focal neurological deficits. Neurologic exam is nonfocal. - Labs CBC & Chem 7: 05/08/18 03:34 05/08/18 03:34 Labs: Abnormal Lab Results - Last 24 Hours (Table) 05/07/18 05/07/18 05/08/18 Range/Units 17:18 21:01 03:34 WBC 12.3 H (3.8-10.6) k/uL Neutrophils # 8.7 H (1.3-7.7) k/uL BUN (7-17) mg/dL Glucose (74-99) mg/dL POC Glucose (mg/dL) 130 H 129 H (75-99) mg/dL 05/08/18 05/08/18 Range/Units 03:34 07:59 WBC (3.8-10.6) k/uL Neutrophils # (1.3-7.7) k/uL BUN 21 H (7-17) mg/dL Glucose 120 H (74-99) mg/dL POC Glucose (mg/dL) 104 H (75-99) mg/dL Microbiology - Last 24 Hours (Table) 05/05/18 20:22 Gram Stain - Final Sputum Sputum Culture - Final Assessment and Plan Plan: Assessment 1 acute hypoxic respiratory failure. All other details discussed earlier. This has recovered completely and the patient is back to normal. Currently on room air. She is ambulating. 2 acute hemodynamic instability secondary to hypoxemia, recovered. 3 obesity 4 ventral hernia and the procedure was canceled due to the events mentioned above 5 history of lupus/RA 6 history of pericarditis 7 altered mentation, confusion with possibility of an acute hypoxic encephalopathy. There is also improving and the neuro workup is negative. Plan We'll release out of the ICU. Outpatient medications were resumed. Outpatient follow-up. Can discharge home if cleared by neurology.
--- NOTE | 2018-05-08 15:08 | EEG ---
ELECTROENCEPHALOGRAM REPORT DATE OF EE05/08/2018. REFERRING PHYSICIAN: Dr. Moraes. CONSULTING INTERPRETING PHYSICIAN: Dr. He Guan MD. ELECTROENCEPHALOGRAPHIC EXAMINATION REPORT: INDICATION FOR EXAMINATION: This patient is a 32-year-old female, admitted to hospital for surgical repair of umbilical hernia. Patient with complications with the intubation with some degree of an anoxic/hypoxic ischemia to the brain possibly. The patient to undergo MRI and EEG for further evaluation. AGE: 32. EEG FINDINGS: A routine 21 channel awake digital EEG recording was accomplished utilizing the 10-20 international system with bipolar and referential montages. The background activity in the most alert resting state consists of a low to medium amplitude, fairly well- developed well sustained 8 Hz activity over the posterior head regions. This posterior rhythm attenuates to eye opening. There is a small amount of low amplitude 18-20 Hz beta activity seen maximally over the anterior head regions. Muscle and movement artifact was observed on a few occasions during the tracing. Hyperventilation was not performed. Photic stimulation at flash frequencies of 2-30 Hz produced a good symmetrical occipital driving response. No epileptiform discharges were seen. IMPRESSION: This EEG is within normal limits for the patient's age. The EEG failed to reveal any focal, lateralized, or epileptiform abnormalities. Clinical correlation is recommended. MMODL / IJN: [id number] /
== END 2018-05-08 11:50 | disposition home or self-care (01) | DRG 208 ==
LOC: OR 10:15 → 6ICU 15:33
PROVIDERS: ADMIT Surgery Plastic and Reconstructive Surgery; ATTEND Surgery Plastic and Reconstructive Surgery
PROC: 0BH17EZ Insertion of Endotracheal Airway into Trachea, Via Natural or Artificial Opening (ICD-10-PCS; 2018-05-05)
PROC: 5A1935Z Respiratory Ventilation, Less than 24 Consecutive Hours (ICD-10-PCS; principal; 2018-05-05 11:35)
DX: J96.01 Acute respiratory failure with hypoxia (principal); G93.1 Anoxic brain damage, not elsewhere classified; K43.9 Ventral hernia without obstruction or gangrene; E66.01 Morbid (severe) obesity due to excess calories; J45.909 Unspecified asthma, uncomplicated; M06.9 Rheumatoid arthritis, unspecified; T88.4XXA Failed or difficult intubation, initial encounter; F32.9 Major depressive disorder, single episode, unspecified; F41.9 Anxiety disorder, unspecified; G89.29 Other chronic pain; R13.10 Dysphagia, unspecified; R51 Headache; R00.1 Bradycardia, unspecified; R41.3 Other amnesia; R49.0 Dysphonia; M54.2 Cervicalgia; J98.01 Acute bronchospasm; R50.9 Fever, unspecified; Z53.9 Procedure and treatment not carried out, unspecified reason; Z68.35 Body mass index [BMI] 35.0-35.9, adult; Z79.899 Other long term (current) drug therapy; Z88.7 Allergy status to serum and vaccine; Z88.8 Allergy status to other drugs, medicaments and biological substances; Z91.040 Latex allergy status; Z82.49 Family history of ischemic heart disease and other diseases of the circulatory system; Z82.5 Family history of asthma and other chronic lower respiratory diseases; Z80.9 Family history of malignant neoplasm, unspecified; Z83.49 Family history of other endocrine, nutritional and metabolic diseases; Z82.61 Family history of arthritis
CPT/HCPCS: 36415; 36600; 70450; 70551; 71045; 80048; 81001; 82805; 83735; 84100; 85025; 86850; 86900; 86901; 87070; 87205; 94003; 94640; 95816

== ENCOUNTER → 2018-06-23 | Outpatient (CLI) | payer MEDICARE ==
--- NOTE | 2018-06-23 17:35 | CT ---
EXAMINATION TYPE: CT soft tissue neck w con DATE OF EXAM: 06/23/2018 COMPARISON: 08/10/2014 HISTORY: Hoarseness and choking after intubation. CT DLP: 703 mGycm CONTRAST: Patient injected with 100ml mL of Isovue M300. TECHNIQUE: Axial images at 3 mm thick sections. Reconstructed images in the coronal plane and sagitt al plane are reviewed. FINDINGS: Limited CT sections are obtained the lung apices. The lung apices appear clear. CT neck: The torus tubarius and fossa of Rosenmuller are normal. Case Folder spaces are normal. Para nasal sinuses and mastoid air cells are clear. Parotid glands appear normal and symmetrical. Submandibular glands, are normal. Parapharyngeal spac es are normal. No suspicious adenopathy is evident. A few small jugulodigastric nodes are present. S ome shotty lymphadenopathy is within the posterior triangles of the neck. The hypopharynx appears within normal limits. Vocal cord level appear symmetrical. The infraglottic trachea appears unremarkable. Thyroid as visualized is normal. Lung apices are clear. Osseous structures are normal. IMPRESSIONS: 1. Normal soft tissue neck.
--- NOTE | 2018-06-23 17:51 | XR ---
EXAMINATION TYPE: XR chest 2V DATE OF EXAM: 06/23/2018 COMPARISON: 05/08/2018 INDICATION: Hoarseness, left vocal cord paralysis TECHNIQUE: Frontal and lateral views of the chest are obtained. FINDINGS: The heart size is normal. The pulmonary vasculature is normal. The lungs are clear. Aortopulmonic window region appears normal. No discrete masses are evident. Hil ar regions are normal. Postsurgical changes within the lower cervical disc spacer noted. IMPRESSION: 1. No acute pulmonary process.
== END | disposition home or self-care (01) ==
LOC: RADCTMAIN 15:19
PROVIDERS: ATTEND Otolaryngology
DX: J38.00 Paralysis of vocal cords and larynx, unspecified (principal)
CPT/HCPCS: 71046; 70491; Q9967

== ENCOUNTER 2018-12-11 22:45 | Emergency (ER) | payer MEDICARE ==
[2018-12-11 22:55] VITALS: RESP 18
[2018-12-11] MEDS ORDERED: HYDROcodone/APAP 5-325MG 1 EACH TAB PO STA (23:41)
[2018-12-11] MEDS ORDERED: LIDOCAINE 5% PATCH TOPICAL STA (23:41)
[2018-12-12 00:18] LABS: Appearance,Urine Clear (Clear); Bilirubin,Urine Negative (Negative); Blood,Urine Negative (Negative); Color,Urine Yellow; Glucose,Urine (UA) Negative (Negative); Ketones,Urine Negative (Negative); Leukocyte Esterase,Urine Negative (Negative); Nitrite,Urine Negative (Negative); Protein,Urine Negative (Negative); Specific Gravity,Urine 1.013 (1.001-1.035); Urobilinogen,Urine <2.0 mg/dL (<2.0)
[2018-12-12 00:24] LABS: Bacteria,Urine Rare /hpf; Hyaline Casts,Urine 1 /lpf (0-2); Mucus,Urine Rare /hpf; RBC,Urine 1 /hpf (0-5); Squamous Epithelial Cell,Urine 3 /hpf (0-4); WBC,Urine 1 /hpf (0-5)
[2018-12-12] MEDS ORDERED: ACET/COD 300 MG/30 MG STARTER PACK 6 TAB BTL PO STA (00:24)
--- NOTE | 2018-12-12 00:26 | ED ---
Back Pain HPI - General Chief Complaint: Back Pain/Injury Stated Complaint: Back Pain Time Seen by Provider: 12/11/18 23:00 Source: patient Limitations: no limitations - History of Present Illness Initial Comments: 33-year-old female patient presents to the emergency department today for evaluation of right lower back pain. Patient describes the pain as a burning sensation that occasionally radiates down her right leg. Patient states this started a couple of days ago when she was bending over to try and appear issues. States she felt a "popping" sensation in the right low back and has had pain since. States that she was seen and evaluated at [facility] last evening and was diagnosed with muscle spasm was given a prescription for Valium. States she can't take the Valium because it makes her tired and she has children at home. States she has been taking Motrin for her symptoms but it is not helping. She denies any current radiating pain down the leg. Denies any saddle anesthesia or loss of bowel or bladder control. Denies any numbness or tingling to the lower extremities. Denies any fevers or chills. Patient denies any recent rash, shortness breath, chest pain, abdominal pain, nausea, vomiting, diarrhea, constipation, dizziness, weakness, hematuria, dysuria, urinary urgency, urinary frequency, headache, visual changes, or any other complaints. - Related Data Home Medications Medication Instructions Recorded Confirmed Albuterol Inhaler [Ventolin Hfa 2 puff INHALATION RT-Q4H PRN 07/30/16 12/09/18 Inhaler] Ibuprofen [Motrin] 800 mg PO TID PRN 03/24/18 12/09/18 Butalb/Acetaminophen/Caffeine 1 - 2 cap PO Q4HR PRN 12/09/18 12/09/18 [Fioricet 50-300-40 mg Capsule] Previous Rx's Medication Instructions Recorded Acetaminophen-Codeine 300-30mg 1 tab PO Q6H PRN #12 tablet 12/12/18 [Tylenol #3] Lidocaine 5% Patch [Lidoderm] 1 patch TOPICAL DAILY #5 patch 12/12/18 Allergies Allergy/AdvReac Type Severity Reaction Status Date / Time hepatitis B virus vaccine Allergy Itching/swe Verified 12/11/18 22:55 lling latex Allergy Rash/Hives Verified 12/11/18 22:55 duloxetine [From Cymbalta] AdvReac Hearing Verified 12/11/18 22:55 Loss Review of Systems ROS Statement: Those systems with pertinent positive or pertinent negative responses have been documented in the HPI. ROS Other: All systems not noted in ROS Statement are negative. Past Medical History Past Medical History: Asthma, Pneumonia, Rheumatoid Arthritis (RA) Additional Past Medical History / Comment(s): Lupus, RA, pericarditis, chronic neck pain, chronic headaches, History of Any Multi-Drug Resistant Organisms: None Reported Past Surgical History: Ear Surgery, Tonsillectomy Additional Past Surgical History / Comment(s): titanium plate neck sx, cosmetic sx as child on ears Past Anesthesia/Blood Transfusion Reactions: No Reported Reaction Past Psychological History: Anxiety, Depression Smoking Status: Never smoker Past Alcohol Use History: Occasional Past Drug Use History: None Reported - Past Family History Mother Family Medical History: COPD, Hypertension, Myocardial Infarction ([place]), Osteoarthritis (OA), Sleep Apnea/CPAP/BIPAP, Thyroid Disorder Father Family Medical History: Cancer Additional Family Medical History / Comment(s): throat General Exam Limitations: no limitations General appearance: alert, in no apparent distress, other (Social well- developed, well-nourished adult female patient in no acute distress. Vital signs upon presentation are temperature 99.9F, pulse 88, respirations 18, blood pressure 140/60, pulse ox 97% on room air.) Eye exam: Present: normal appearance, PERRL, EOMI. Absent: scleral icterus, conjunctival injection, periorbital swelling ENT exam: Present: normal exam, normal oropharynx, mucous membranes moist Respiratory exam: Present: normal lung sounds bilaterally. Absent: respiratory distress, wheezes, rales, rhonchi, stridor Cardiovascular Exam: Present: regular rate, normal rhythm, normal heart sounds. Absent: systolic murmur, diastolic murmur, rubs, gallop, clicks GI/Abdominal exam: Present: soft, normal bowel sounds. Absent: distended, tenderness, guarding, rebound, rigid Back exam: Present: normal inspection. Absent: vertebral tenderness Neurological exam: Present: alert, oriented X3, CN II-XII intact, other (Strength in all 4 extremities is 5/5.) Psychiatric exam: Present: normal affect, normal mood Skin exam: Present: warm, dry, intact, normal color. Absent: rash Course Vital Signs 12/11/18 12/12/18 22:51 00:47 Temperature 99.9 F H 98.7 F Pulse Rate 88 84 Respiratory 18 18 Rate Blood Pressure 148/68 140/75 O2 Sat by Pulse 97 97 Oximetry Medical Decision Making - Medical Decision Making 33-year-old female patient presented to the emergency department today for evaluation of right lower back pain. She describes the pain as a burning type pain. Physical examination is unremarkable. She is neurologically intact with no focal deficits. No concerning symptoms for cauda equina. Patient did have x-rays that were negative at [facility] last evening that were negative. Symptoms are consistent with mechanical low back pain. Patient does have a procedure coming up in a couple of days for bronchoscopy, she is instructed not to take anti-inflammatory medications. She'll be given a prescription for Tylenol with Codeine. She is instructed to apply ice and heat. She'll be given a prescription for Lidoderm patch. Is instructed follow up with her primary care physician for recheck in 1-2 days. Return parameters were discussed in detail. She verbalizes understanding and agrees with this plan. - Lab Data Lab Results 12/11/18 12/11/18 Range/Units 23:50 23:50 Urine Color Yellow Urine Appearance Clear (Clear) Urine pH 6.0 (5.0-8.0) Ur Specific Axson 1.013 (1.001-1.035) Urine Protein Negative (Negative) Urine Glucose (UA) Negative (Negative) Urine Ketones Negative (Negative) Urine Blood Negative (Negative) Urine Nitrite Negative (Negative) Urine Bilirubin Negative (Negative) Urine Urobilinogen <2.0 (<2.0) mg/dL Ur Leukocyte Esterase Negative (Negative) Urine RBC 1 (0-5) /hpf Urine WBC 1 (0-5) /hpf Ur Squamous Epith Cells 3 (0-4) /hpf Urine Bacteria Rare H (None) /hpf Hyaline Casts 1 (0-2) /lpf Urine Mucus Rare H (None) /hpf Urine HCG, Qual Not Detected (Not Detectd) Disposition Clinical Impression: Acute low back pain Disposition: HOME SELF-CARE Condition: Good Instructions (If sedation given, give patient instructions): Acute Low Back Pain (ED), Lower Back Exercises (ED) Additional Instructions: Use patch as directed, apply for 12 hours remove for 12 hours. Take pain medication sparingly as needed for symptom relief. Follow-up with your primary care physician for recheck in 1-2 days. Prescriptions: Lidocaine 5% Patch [Lidoderm] 1 patch TOPICAL DAILY #5 patch Acetaminophen-Codeine 300-30mg [Tylenol #3] 1 tab PO Q6H PRN #12 tablet PRN Reason: Pain Is patient prescribed a controlled substance at d/c from ED?: No Referrals: Ld Eugene MD [Primary Care Provider] - 1-2 days Time of Disposition: 00:25
[2018-12-12 01:16] VITALS: BP 140/75; PULSE 84; TEMP 98.7
== END 2018-12-12 00:47 | disposition home or self-care (01) ==
LOC: EC 22:45
DX: M54.5 Low back pain (principal); J45.909 Unspecified asthma, uncomplicated; Z88.8 Allergy status to other drugs, medicaments and biological substances; Z91.040 Latex allergy status; Z88.7 Allergy status to serum and vaccine
CPT/HCPCS: 81003; 81025; 99283

== ENCOUNTER → 2020-06-18 | Outpatient (CLI) | payer MEDICARE, OTHER ==
--- NOTE | 2020-06-18 13:03 | XR ---
EXAMINATION TYPE: XR chest 2V DATE OF EXAM: 06/18/2020 COMPARISON: 06/23/2018 TECHNIQUE: PA and lateral views submitted. HISTORY: Chest pain FINDINGS: The lungs are clear and there is no pneumothorax, pleural effusion, or focal pneumonia. Heart size stable. No overt failure. IMPRESSION: 1. No acute process.
--- NOTE | 2020-06-18 17:30 | ECHOF ---
Referral Reason:R07.89 Atypical chest pain, R00.2 Palpitations MEASUREMENTS -------- HEIGHT: 170.2 cm WEIGHT: 104.3 kg BP: IVSd: 1.3 cm (0.6 - 1.1) LVIDd: 3.7 cm (3.9 - 5.3) LVPWd: 1.3 cm (0.6 - 1.1) IVSs: 1.5 cm LVIDs: 2.5 cm LVPWs: 1.6 cm RVIDd: 3.1 cm (< 3.3) LAESV Index (A-L): 21.66 ml/m Ao Diam: 2.1 cm (2.0 - 3.7) AV Cusp: 1.6 cm (1.5 - 2.6) EPSS: 0.4 cm MV E Roscoe: 0.95 m/s MV DecT: 218 ms MV A Roscoe: 1.00 m/s MV E/A Ratio: 0.95 RAP: 5.00 mmHg RVSP: 28.75 mmHg MV EF SLOPE: 80.69 mm/s (70 - 150) MV EXCURSION: 17.41 mm (> 18.000) FINDINGS -------- This was a technically good study. The left ventricular size is normal. There is mild concentric left ventricular hypertrophy. Overa ll left ventricular systolic function is normal with, an EF between 55 - 60 %. The diastolic fillin g pattern is normal for the age of the patient 11.63. The right ventricle is normal in size. Normal LA size by volume 22+/-6 ml/m2. The right atrial size is normal. Interatrial and interventricular septum intact. The aortic valve is trileaflet and appears structurally normal. There is no evidence of aortic regu rgitation. There is no evidence of aortic stenosis. There is trace mitral regurgitation. Mild tricuspid regurgitation present. There is no evidence of pulmonary hypertension. The right v entricular systolic pressure, as measured by Doppler, is 28.75mmHg. There is no pulmonic regurgitation present. The aortic root size is normal. Normal inferior vena cava with normal inspiratory collapse consistent with estimated right atrial pre ssure of 5 mmHg. There is no pericardial effusion. CONCLUSIONS -------- 1. The left ventricular size is normal. 2. There is mild concentric left ventricular hypertrophy. 3. Overall left ventricular systolic function is normal with, an EF between 55 - 60 %. 4. The diastolic filling pattern is normal for the age of the patient 11.63 5. There is trace mitral regurgitation. 6. Mild tricuspid regurgitation present. HULL MOLDER: Rhina Mcneil RDCS
== END | disposition home or self-care (01) ==
LOC: RADECHMAIN 12:04
PROVIDERS: ATTEND Family Medicine
DX: I07.1 Rheumatic tricuspid insufficiency (principal); R07.9 Chest pain, unspecified
CPT/HCPCS: 71046; 93306

== ENCOUNTER → 2020-07-29 | Outpatient (CLI) | payer MEDICARE, OTHER ==
[2020-07-29 16:57] LABS: Basophils # (A) 0.1 k/uL (0-0.2); Basophils % (A) 1 %; Eosinophils # (A) 0.4 k/uL (0-0.7); Eosinophils % (A) 4 %; HCT 44.5 % (34.0-46.0); Lymphocytes # (A) 2.9 k/uL (1.0-4.8); Lymphocytes % (A) 29 %; MCH 27.6 pg (25.0-35.0); MCHC 31.5 g/dL (31.0-37.0); MCV 87.6 fL (80.0-100.0); Mean Platelet Volume 6.7; Monocytes # (A) 0.4 k/uL (0-1.0); Monocytes % (A) 4 %; Neutrophils % (A) 61 %; Platelet Count 331 k/uL (150-450); RBC 5.07 m/uL (3.80-5.40); RDW 13.9 % (11.5-15.5); WBC 9.8 k/uL (3.8-10.6)
[2020-07-30 00:15] LABS: African American GFR (CKD) 110.7 (60.0-200.0); Albumin/Globulin Ratio 2.11 (1.60-3.17); Anion Gap 7.6 mmol/L (4.00-12.00); BUN/Creat Ratio 13.75 Ratio (12.00-20.00); Calcium 8.9 mg/dL (8.7-10.3); Carbon Dioxide 28.4 mmol/L (21.6-31.8); Chol/HDL Ratio 5.54; Globulin 1.9 g/dL (1.6-3.3); Non-African American GFR(CKD) 95.5 (60.0-200.0); Potassium 4.2 mmol/L (3.5-5.5); Total Bilirubin 0.5 mg/dL (0.3-1.2); Total Protein 5.9 g/dL (6.2-8.2)
== END | disposition home or self-care (01) ==
LOC: LABWHC1 13:16
PROVIDERS: ATTEND Family Medicine
DX: R07.89 Other chest pain (principal); R00.2 Palpitations; M06.9 Rheumatoid arthritis, unspecified; E55.9 Vitamin D deficiency, unspecified
CPT/HCPCS: 36415; 80053; 80061; 82306; 84443; 85025

== ENCOUNTER 2021-04-02 | Emergency (ER) | payer MEDICARE, OTHER | END 2021-04-02 16:54 | disposition home or self-care (01) | CPT/HCPCS: 36415; 71046; 80053; 83690; 83735; 84484; 85025; 85379; 85610; 85730; 86140; 93005; 96374; 99285 ==

== ENCOUNTER 2021-05-23 08:53 | Emergency (ER) | payer MEDICARE ==
[2021-05-23 09:02] VITALS: TEMP 100.1
[2021-05-23] MEDS ORDERED: SODIUM CHLORIDE 0.9% 1,000 ML IV STA ×2 (09:21)
[2021-05-23] MEDS ORDERED: ONDANSETRON 4 MG/2 ML VIAL IVP STA (09:22)
[2021-05-23] MEDS ORDERED: DEXAMETHASONE SOD PHOSPHATE 10 MG/ML 1 ML VIAL IV STA (09:22)
[2021-05-23 09:48] LABS: Basophils % (A) 1 %; Eosinophils % (A) 0 %; HGB 13.7 gm/dL (11.4-16.0); Lymphocytes # (A) 1.2 k/uL (1.0-4.8); Lymphocytes % (A) 26 %; MCH 28.9 pg (25.0-35.0); MCHC 32.7 g/dL (31.0-37.0); MCV 88.3 fL (80.0-100.0); Monocytes # (A) 0.3 k/uL (0-1.0); Monocytes % (A) 6 %; Neutrophils % (A) 66 %; Platelet Count 240 k/uL (150-450); RBC 4.75 m/uL (3.80-5.40); RDW 14.5 % (11.5-15.5); WBC 4.5 k/uL (3.8-10.6)
[2021-05-23 09:56] LABS: ALT 16 U/L (4-34); AST 24 U/L (14-36); African American GFR (CKD) >90 (>60 ml/min/1.73 sqM); Albumin 4.1 g/dL (3.5-5.0); Alkaline Phosphatase 68 U/L (38-126); Anion Gap 8 mmol/L; Blood Urea Nitrogen 13 mg/dL (7-17); Calcium 8.4 mg/dL (8.4-10.2); Carbon Dioxide 26 mmol/L (22-30); Chloride 103 mmol/L (98-107); Glucose 142 mg/dL (74-99); Non-African American GFR(CKD) 89 (>60 ml/min/1.73 sqM); Potassium 3.9 mmol/L (3.5-5.1); Sodium 137 mmol/L (137-145); Total Bilirubin 0.3 mg/dL (0.2-1.3); Total Protein 6.6 g/dL (6.3-8.2)
[2021-05-23 10:03] LABS: Partial Thromboplastin Time 25.6 sec (22.0-30.0); Prothrombin Time 10.7 sec (9.0-12.0)
--- NOTE | 2021-05-23 10:24 | XR ---
EXAMINATION TYPE: XR chest 2V DATE OF EXAM: 05/23/2021 COMPARISON: 04/02/2021 HISTORY: 35-year-old female shortness of breath, difficulty breathing, cold and positive TECHNIQUE: PA and lateral views FINDINGS: There is intervertebral disc prosthesis lower cervical spine. Heart normal size. Aorta and pulmonary vasculature are within normal limits. No consolidation or pleural effusion is seen. There is mild pat charla posterior basilar opacity on the lateral view. IMPRESSION: Some patchy posterior basilar opacity on the lateral view could represent atelectasis or early infilt rate.
[2021-05-23] MEDS ORDERED: KETOROLAC 15 MG/ML 1 ML VIAL IVP STA (10:52)
[2021-05-23] MEDS ORDERED: CASIRIVIMAB (REGN10933) (EUA) 600 MG, IMDEVIMAB (REGN10987) (EUA) 600 MG in SODIUM CHLO... IVPB ONE (12:00)
[2021-05-23] MEDS ORDERED: SODIUM CHLORIDE 0.9% 50 ML IVPB ONE (12:00)
--- NOTE | 2021-05-23 12:17 | ED ---
SOB HPI - General Chief Complaint: Shortness of Breath Stated Complaint: Covid, Low 02 Time Seen by Provider: 05/23/21 09:04 Source: patient Mode of arrival: ambulatory Limitations: no limitations - History of Present Illness Initial Comments: This 35-year-old female presents with a complaint of shortness of breath which is been present for 8 days. She was diagnosed with a positive COVID test 4 days ago and 2 days ago. She has had loss of taste and loss of smell. She's had some moderate fatigue. She complains of nausea and decreased appetite. There is no leg pain or swelling or history of DVT or PE. She apparently was seen at [facility] emergency department 2 days ago and had x-ray and lab work done at that time and was discharged. The only medicine she has taken is Tylenol. She states that the shortness of breath is somewhat worse today. Her oxygenation level has been running in the low 90s primarily. She has had slight fever. No other complaints or modifying factors. - Related Data Home Medications Medication Instructions Recorded Confirmed Acetaminophen Tab [Tylenol Tab] 1,000 mg PO Q6HR PRN 05/23/21 05/23/21 Albuterol Inhaler [Ventolin Hfa 2 puff INHALATION RT-Q4H PRN 05/23/21 05/23/21 Inhaler] Albuterol Nebulized [Ventolin 2.5 mg INHALATION RT-Q4H PRN 05/23/21 05/23/21 Nebulized] Ascorbic Acid [Vitamin C] 500 mg PO DAILY 05/23/21 05/23/21 Elderberry Fruit and Flower [Black 1 cap PO DAILY 05/23/21 05/23/21 Elderberry 575 mg Cap] Zinc 50 mg PO DAILY 05/23/21 05/23/21 Previous Rx's Medication Instructions Recorded Azithromycin [Zithromax Z-pack] 0 mg PO DIRECTED #6 tab 05/23/21 Dexamethasone [Decadron] 6 mg PO DAILY #7 tablet 05/23/21 Allergies Allergy/AdvReac Type Severity Reaction Status Date / Time adhesive tape Allergy RASH, Verified 05/23/21 09:45 BLISTERS hepatitis B virus vaccine Allergy Itching/swe Verified 05/23/21 09:45 lling latex Allergy Rash/Hives Verified 05/23/21 09:45 duloxetine [From Cymbalta] AdvReac Hearing Verified 05/23/21 09:45 Loss Review of Systems ROS Statement: Those systems with pertinent positive or pertinent negative responses have been documented in the HPI. ROS Other: All systems not noted in ROS Statement are negative. Past Medical History Past Medical History: Asthma, Pneumonia, Rheumatoid Arthritis (RA) Additional Past Medical History / Comment(s): Lupus, pericarditis, chronic neck pain, chronic headaches, History of Any Multi-Drug Resistant Organisms: None Reported Past Surgical History: Ear Surgery, Tonsillectomy Additional Past Surgical History / Comment(s): titanium plate neck sx, cosmetic sx as child on ears Past Anesthesia/Blood Transfusion Reactions: Previous Problems w/ Anesthesia Additional Past Anesthesia/Blood Transfusion Reaction / Comment(s): " DURING HER HERNIA SURGERY SCHEDULED APRIL 2018 THEY WERE UNABLE TO DO HER SURGERY, SHE STOPPED BREATHING WAS ADMITTED TO ICU 3 DAYS" . ( SEE PREVIOUS MEDICAL RECORD FROM APR 2019 -[facility] Past Psychological History: Anxiety, Depression Smoking Status: Never smoker Past Alcohol Use History: Occasional Past Drug Use History: Marijuana - Past Family History Mother Family Medical History: COPD, Hypertension, Myocardial Infarction (ME), Osteoarthritis (OA), Sleep Apnea/CPAP/BIPAP, Thyroid Disorder Father Family Medical History: Cancer Additional Family Medical History / Comment(s): throat General Exam - General Exam Comments Initial Comments: GENERAL: The patient is well nourished and well hydrated. VITAL SIGNS: Heart rate, blood pressure, respiratory rate reviewed as recorded in nurse's notes. EYES: Pupils are round and reactive. Extraocular movements are intact. No conjunctival / lid redness or swelling. ENT: No external evidence of injury, swelling, or ecchymosis. Airway is patent. Throat is clear. NECK: Nontender. No swelling or evidence of injury. No subcutaneous emphysema. T rachea is midline. No thyroid mass. HEART: Regular rate and rhythm. Good peripheral pulses. LUNGS/CHEST: Breath sounds clear and equal bilaterally. No rales, rhonchi, or wheezes. No ecchymosis, subcutaneous emphysema, or tenderness. ABDOMEN: Abdomen soft without tenderness. No palpable masses or organomegaly. No peritoneal signs. No abdominal wall swelling or ecchymosis. EXTREMITIES: No extremity tenderness. Normal muscle tone and function. No thoracolumbar tenderness. NEUROLOGIC: Sensation is grossly intact. Cranial nerve exam reveals face is symmetrical, tongue is midline, speech is clear. SKIN: No abrasions or ecchymosis is noted. No induration or masses noted. PSYCHIATRIC: Alert and oriented. Appropriate behavior and judgment. Limitations: no limitations Course Vital Signs 05/23/21 05/23/21 05/23/21 08:59 09:51 10:02 Temperature 100.1 F H Pulse Rate 95 75 Respiratory 20 20 18 Rate Blood Pressure 116/65 115/65 O2 Sat by Pulse 93 L 95 Oximetry 05/23/21 05/23/21 05/23/21 11:00 11:30 12:00 Temperature Pulse Rate 79 84 81 Respiratory 18 18 Rate Blood Pressure 127/75 139/88 118/82 O2 Sat by Pulse 95 90 L 94 L Oximetry Medical Decision Making - Medical Decision Making The patient was seen and examined. All diagnostics were reviewed. EKG shows a normal sinus rhythm at a rate of 89. There is no acute ST-T wave changes noted. The AR intervals 146, QRS duration is 88, and the QTC intervals 438. The patient does have a laboratory analysis which does not show any acute sign ificant abnormalities. The chest x-ray does show evidence of a posterior infiltrate. It is felt as though this likely is related to her COVID diagnosis. She receives Decadron intravenously. She also receives the Regen-COV antibody treatment intravenously. Wrist benefits of this were discussed with her in detail she is agreeable to obtaining it. Paperwork is completed and this regard. Her recheck pulse ox is approximately 93-94% on room air. It is felt as though she is stable for discharge. She is agreeable with the following disposition and leaves in no distress. Return parameters were discussed in detail. Close follow-up is recommended. - Lab Data Result diagrams: 05/23/21 09:20 05/23/21 09:20 Lab Results 05/23/21 05/23/21 05/23/21 Range/Units 09:20 09:20 09:20 WBC 4.5 (3.8-10.6) k/uL RBC 4.75 (3.80-5.40) m/uL Hgb 13.7 (11.4-16.0) gm/dL Hct 42.0 (34.0-46.0) % MCV 88.3 (80.0-100.0) fL MCH 28.9 (25.0-35.0) pg MCHC 32.7 (31.0-37.0) g/dL RDW 14.5 (11.5-15.5) % Plt Count 240 (150-450) k/uL MPV 7.0 Neutrophils % 66 % Lymphocytes % 26 % Monocytes % 6 % Eosinophils % 0 % Basophils % 1 % Neutrophils # 3.0 (1.3-7.7) k/uL Lymphocytes # 1.2 (1.0-4.8) k/uL Monocytes # 0.3 (0-1.0) k/uL Eosinophils # 0.0 (0-0.7) k/uL Basophils # 0.0 (0-0.2) k/uL PT 10.7 (9.0-12.0) sec INR 1.0 (<1.2) APTT 25.6 (22.0-30.0) sec D-Dimer 0.36 (<0.60) mg/L FEU Sodium 137 (137-145) mmol/L Potassium 3.9 (3.5-5.1) mmol/L Chloride 103 (98-107) mmol/L Carbon Dioxide 26 (22-30) mmol/L Anion Gap 8 mmol/L BUN 13 (7-17) mg/dL Creatinine 0.85 (0.52-1.04) mg/dL Est GFR (CKD-EPI)AfAm >90 (>60 ml/min/1.73 sqM) Est GFR (CKD-EPI)NonAf 89 (>60 ml/min/1.73 sqM) Glucose 142 H (74-99) mg/dL Plasma Lactic Acid Cuau[place]emoc (0.7-2.0) mmol/L Calcium 8.4 (8.4-10.2) mg/dL Total Bilirubin 0.3 (0.2-1.3) mg/dL AST 24 (14-36) U/L ALT 16 (4-34) U/L Alkaline Phosphatase 68 (38-126) U/L Troponin I (0.000-0.034) ng/mL NT-Pro-B Natriuret Pep pg/mL Total Protein 6.6 (6.3-8.2) g/dL Albumin 4.1 (3.5-5.0) g/dL 05/23/21 05/23/21 05/23/21 Range/Units 09:20 09:20 09:20 WBC (3.8-10.6) k/uL RBC (3.80-5.40) m/uL Hgb (11.4-16.0) gm/dL Hct (34.0-46.0) % MCV (80.0-100.0) fL MCH (25.0-35.0) pg MCHC (31.0-37.0) g/dL RDW (11.5-15.5) % Plt Count (150-450) k/uL MPV Neutrophils % % Lymphocytes % % Monocytes % % Eosinophils % % Basophils % % Neutrophils # (1.3-7.7) k/uL Lymphocytes # (1.0-4.8) k/uL Monocytes # (0-1.0) k/uL Eosinophils # (0-0.7) k/uL Basophils # (0-0.2) k/uL PT (9.0-12.0) sec INR (<1.2) APTT (22.0-30.0) sec D-Dimer (<0.60) mg/L FEU Sodium (137-145) mmol/L Potassium (3.5-5.1) mmol/L Chloride (98-107) mmol/L Carbon Dioxide (22-30) mmol/L Anion Gap mmol/L BUN (7-17) mg/dL Creatinine (0.52-1.04) mg/dL Est GFR (CKD-EPI)AfAm (>60 ml/min/1.73 sqM) Est GFR (CKD-EPI)NonAf (>60 ml/min/1.73 sqM) Glucose (74-99) mg/dL Plasma Lactic Acid [place] 0.9 (0.7-2.0) mmol/L Calcium (8.4-10.2) mg/dL Total Bilirubin (0.2-1.3) mg/dL AST (14-36) U/L ALT (4-34) U/L Alkaline Phosphatase (38-126) U/L Troponin I <0.012 (0.000-0.034) ng/mL NT-Pro-B Natriuret Pep 39 pg/mL Total Protein (6.3-8.2) g/dL Albumin (3.5-5.0) g/dL Disposition Clinical Impression: COVID, Pneumonia due to COVID-19 virus, Nausea, Fatigue, Dyspnea, Hypoxia Disposition: HOME SELF-CARE Condition: Good Instructions (If sedation given, give patient instructions): Viral Pneumonia (ED), Coronavirus Disease 2019 (COVID-19) Prescriptions: Dexamethasone [Decadron] 6 mg PO DAILY #7 tablet Azithromycin [Zithromax Z-pack] 0 mg PO DIRECTED #6 tab Is patient prescribed a controlled substance at d/c from ED?: No Referrals: Carrillo Penny [Primary Care Provider] - 1-2 days Time of Disposition: 12:15
[2021-05-23 13:33] VITALS: BP 122/76; PULSE 73; RESP 20
== END 2021-05-23 13:41 | disposition home or self-care (01) ==
LOC: EC 08:53
DX: J12.82 Pneumonia due to coronavirus disease 2019 (principal); U07.1 COVID-19; J45.909 Unspecified asthma, uncomplicated; M06.9 Rheumatoid arthritis, unspecified; F41.9 Anxiety disorder, unspecified; F32.9 Major depressive disorder, single episode, unspecified; F12.90 Cannabis use, unspecified, uncomplicated; Z79.899 Other long term (current) drug therapy
CPT/HCPCS: 36415; 93005; 85379; 83880; 80053; 83605; 84484; 85025; 85610; 85730; 87040; 71046; 99285; 96365; 96367; 96375 ×2; 96361 ×5; J1100; J2405; J1885